=== PATIENT | male | born 1950 | race African-American/Black ===

== ENCOUNTER 2018-10-24 16:44 | Inpatient (IN) | payer MEDICARE, MEDICAID ==
[~2018-10-24] VITALS: Ht 182.9 cm; Wt 112.5 kg
[2018-10-24] VITALS (17 sets, daily range): BP systolic 73–180; BP diastolic 42–120
[2018-10-24] MEDS ORDERED: SUCCINYLCHOLINE CHLORIDE 200MG/10ML IV ONE (16:51)
[2018-10-24] MEDS ORDERED: SODIUM CHLORIDE 0.9% 10ML VIAL ONE (16:51)
[2018-10-24] MEDS ORDERED: SODIUM BICARBONATE 8.4% 10MEQ/10ML SYR IV ONE (16:51)
[2018-10-24] MEDS ORDERED: CALCIUM CHLORIDE 1GM/10ML SYR IV ONE ×4 (16:51→19:15)
[2018-10-24] MEDS ORDERED: ATROPINE SULFATE 1MG/10ML SYR ONE (16:51)
[2018-10-24] MEDS ORDERED: DEXTROSE 50% WATER 50ML SYRINGE IV ONE ×2 (16:51→19:00)
[2018-10-24] MEDS ORDERED: VECURONIUM BROMIDE 10 MG/VIAL IV ONE ×2 (16:51→19:15)
[2018-10-24] MEDS ORDERED: ETOMIDATE 2MG/ML 10ML VIAL IV ONE ×2 (16:51→17:00)
[2018-10-24] MEDS ORDERED: SODIUM CHLORIDE 0.9% 1,000 ML IV ONE (16:57)
[2018-10-24] MEDS ORDERED: SODIUM BICARBONATE 8.4% 1 MEQ/ML 50ML SYR IV ONE ×2 (17:00→19:00)
[2018-10-24] MEDS ORDERED: CALCIUM CHLORIDE 1,000 MG in DEXT 5% WATER 100 ML IV ONE (17:00)
[2018-10-24] MEDS ORDERED: MIDAZOLAM HCL 2 MG/2 ML VIAL ONE (17:10)
[2018-10-24 18:41] LABS: INR 1.3; PROTHROMBIN TIME 13.4 sec (9.6-11.0)
[2018-10-24 18:42] LABS: CHLORIDE 107 mEq/L (98-107); HEMATOCRIT. 31.5 % (42.0-52.0); HEMOGLOBIN. 9.8 g/dL (14.0-18.0); MEAN CORPUSCULAR HEMOGLOBIN 31.2 pg (28.0-32.0); MEAN CORPUSCULAR VOLUME 100.1 fL (80.0-94.0); MEAN PLATELET VOLUME 7.7 fl (7.4-10.4); PLATELET 165 x1000/uL (130-400); RED BLOOD CELL COUNT 3.14 mill/uL (4.7-6.1); RED CELL DISTRIBUTION WIDTH 20.5 % (11.6-14.6)
[2018-10-24 18:47] LABS: ETHANOL BLOOD < 10 mg/dL
[2018-10-24] MEDS ORDERED: INSULIN REGULAR (HUMULIN R) 300UNITS/3ML IV ONE (19:00)
[2018-10-24 19:05] LABS: BG BASE EXCESS -17.3 mmol/L (-2.0-2.0); BG CARBOXYHEMOGLOBIN 1.1 % (0.5-1.5); BG FRACTION INSPIRED OXYGEN 100; BG METHEMOGLOBIN 0.3 % (0.0-1.5); BG OXYHEMOGLOBIN 97.6 % (94.0-97.0); BG PCO2 41.8 mmHg (35.0-45.0); BG PH 7.075 (7.350-7.450); BG PO2 347.7 mmHg (75.0-100.0); BG SAMPLE SITE LEFT BRACHIAL; BG TIDAL VOLUME(mL) 550 mL; BG TOTAL HEMOGLOBIN 10.7 g/dL (12.0-18.0); BG VENT MODE VENT - A/C; BG VENT RATE 16 set
[2018-10-24] MEDS ORDERED: ATROPINE SULFATE 1MG/10ML SYR IV ONE ×2 (19:15)
[2018-10-24 20:40] LABS: NUCLEATED RED BLOOD CELLS 1 /100 WBC; PLATELET ESTIMATE NORMAL
[2018-10-24] MEDS ORDERED: LORAZEPAM 2MG/ML CPJ IV PRN (21:45)
[2018-10-24] MEDS ORDERED: PIPERACILLIN/TAZ 3.375G PREMIX 50 ML IV SCH (22:30)
[2018-10-25] VITALS (99 sets, daily range): BP systolic 68–146; BP diastolic 31–83
[2018-10-25 00:04] LABS: CREATINE KINASE 932 IU/L (39-308)
[2018-10-25 00:06] LABS: CREATINE KINASE MB FRACTION 24.4 ng/mL (0.5-3.6)
[2018-10-25] MEDS ORDERED: NOREPINEPHRINE 4 MG in DEXT 5% WATER 246 ML IV PRN (01:15)
[2018-10-25] MEDS: PROPOFOL 10MG/ML 100ML 100 ML IV PRN ×5 (01:39→20:28)
[2018-10-25] MEDS: PIPERACILLIN/TAZ 2.25G PREMIX 50 ML IV SCH ×3 (03:16→16:12)
[2018-10-25] MEDS ORDERED: VANCOMYCIN 2,000 MG in DEXT 5% WATER 400 ML IV NR (05:00)
[2018-10-25 06:06] LABS: HEMATOCRIT. 25.2 % (42.0-52.0); HEMOGLOBIN. 8.1 g/dL (14.0-18.0); MEAN CORPUSCULAR HEMOGLOBIN 31.4 pg (28.0-32.0); MEAN CORPUSCULAR VOLUME 97.2 fL (80.0-94.0); MEAN PLATELET VOLUME 7.8 fl (7.4-10.4); PLATELET 131 x1000/uL (130-400); RED CELL DISTRIBUTION WIDTH 20.1 % (11.6-14.6)
[2018-10-25 06:17] LABS: CREATINE KINASE MB FRACTION 18.6 ng/mL (0.5-3.6)
[2018-10-25] MEDS: IPRATROPIUM/ALBUTEROL 0.5-3(2.5)MG/3ML NEB HHN SCH ×4 (08:15→20:32)
[2018-10-25 08:37] LABS: BG CARBOXYHEMOGLOBIN 2.3 % (0.5-1.5); BG FRACTION INSPIRED OXYGEN 40; BG HCO3 ACT 25.4 mmol/L (22.0-26.0); BG METHEMOGLOBIN 0.3 % (0.0-1.5); BG OXYGEN SATURATION 89.7 % (92.0-98.5); BG OXYHEMOGLOBIN 87.4 % (94.0-97.0); BG PCO2 52.2 mmHg (35.0-45.0); BG PH 7.305 (7.350-7.450); BG PO2 69.4 mmHg (75.0-100.0); BG SAMPLE SITE RIGHT BRACHIAL; BG TIDAL VOLUME(mL) 500 mL; BG TOTAL HEMOGLOBIN 7.4 g/dL (12.0-18.0); BG VENT MODE VENT - A/C; BG VENT RATE 18 set
[2018-10-25] MEDS: HEPARIN 5000 UNITS/ML VIAL SUBCUT SCH ×2 (08:59→21:00)
[2018-10-25] MEDS: FAMOTIDINE 20MG/2ML VIAL IV SCH (09:00)
[2018-10-25] MEDS: NOREPINEPHRINE 16 MG in DEXT 5% WATER 234 ML IV PRN ×2 (11:57→21:25)
[2018-10-25 12:13] LABS: T4 FREE 1.07 ng/dL (0.76-1.46)
[2018-10-25] MEDS ORDERED: SODIUM CHLORIDE 0.9% 500 ML IV SCH (12:30)
[2018-10-25] MEDS: DEXT 5%/0.45% NACL 1000ML 1,000 ML IV SCH (12:35)
[2018-10-25] MEDS ORDERED: PHENYLEPHRINE 40 MG in DEXT 5% WATER 246 ML IV PRN (13:15)
[2018-10-25 17:59] LABS: NUCLEATED RED BLOOD CELLS 3 /100 WBC; PLATELET ESTIMATE NORMAL
[2018-10-25 20:27] LABS: ETHANOL BLOOD < 10 mg/dL
[2018-10-25 20:29] LABS: TOTAL IRON BINDING CAPACITY 223 ug/dL (250-450)
[2018-10-25 20:53] LABS: FERRITIN 833 ng/mL (22-322)
[2018-10-25 20:56] LABS: VITAMIN B12 SERUM >2000 pg/mL pg/mL (211-911)
[2018-10-26] VITALS (95 sets, daily range): BP systolic 89–147; BP diastolic 33–72
[2018-10-26] MEDS: IPRATROPIUM/ALBUTEROL 0.5-3(2.5)MG/3ML NEB HHN SCH ×5 (00:07→21:00)
[2018-10-26] MEDS: PIPERACILLIN/TAZ 2.25G PREMIX 50 ML IV SCH ×4 (00:31→17:17)
[2018-10-26] MEDS: PROPOFOL 10MG/ML 100ML 100 ML IV PRN ×2 (04:31→09:01)
[2018-10-26 06:29] LABS: PHOSPHORUS 11.1 mg/dL (2.5-4.9)
[2018-10-26] MEDS: NOREPINEPHRINE 16 MG in DEXT 5% WATER 234 ML IV PRN ×2 (06:43→16:45)
[2018-10-26] MEDS: HEPARIN 5000 UNITS/ML VIAL SUBCUT SCH ×2 (09:00→21:00)
[2018-10-26] MEDS: FAMOTIDINE 20MG/2ML VIAL IV SCH (09:00)
[2018-10-26] MEDS: DEXT 5%/0.45% NACL 1000ML 1,000 ML IV SCH (09:15)
[2018-10-26] MEDS ORDERED: HEPARIN SODIUM 1,000 UNIT/1ML VIAL IV NR (11:00)
[2018-10-26] MEDS ORDERED: LORAZEPAM 2MG/ML CPJ IV PRN (11:00)
[2018-10-26 11:55] LABS: HEMATOCRIT. 30.2 % (42.0-52.0); HEMOGLOBIN. 9.4 g/dL (14.0-18.0); MEAN CORPUSCULAR HEMOGLOBIN 30.9 pg (28.0-32.0); MEAN CORPUSCULAR VOLUME 99.4 fL (80.0-94.0); MEAN PLATELET VOLUME 7.7 fl (7.4-10.4); PLATELET 165 x1000/uL (130-400); RED BLOOD CELL COUNT 3.03 mill/uL (4.7-6.1)
[2018-10-26 12:17] LABS: NUCLEATED RED BLOOD CELLS 1 /100 WBC; PLATELET ESTIMATE NORMAL
[2018-10-26] MEDS: FENTANYL CITRATE/PF 500 MCG in SODIUM CHLORIDE 0.9% 40 ML IV PRN (16:55)
[2018-10-26] MEDS: SEVELAMER CARBONATE 800 MG TABLET PO SCH (17:17)
[2018-10-26 20:49] LABS: T4 FREE 0.83 ng/dL (0.76-1.46)
[2018-10-26] MEDS: QUETIAPINE FUMARATE 25MG TABLET PO SCH (21:12)
[2018-10-26] MEDS: SODIUM CHLORIDE 3% FOR INH 15ML VIAL NEB INH SCH (21:20)
[2018-10-27] VITALS (143 sets, daily range): BP systolic 83–156; BP diastolic 30–92
[2018-10-27] MEDS: IPRATROPIUM/ALBUTEROL 0.5-3(2.5)MG/3ML NEB HHN SCH ×6 (00:08→21:33)
[2018-10-27] MEDS: ACETYLCYSTEINE 100MG/ML 10% VIAL 4ML INH SCH ×3 (00:08→16:41)
[2018-10-27] MEDS: PIPERACILLIN/TAZ 2.25G PREMIX 50 ML IV SCH ×3 (00:43→16:49)
[2018-10-27] MEDS: SODIUM CHLORIDE 3% FOR INH 15ML VIAL NEB INH SCH ×2 (04:17→16:40)
[2018-10-27] MEDS: DEXT 5%/0.45% NACL 1000ML 1,000 ML IV SCH (05:43)
[2018-10-27 05:53] LABS: HEMATOCRIT. 25.3 % (42.0-52.0); HEMOGLOBIN. 8.2 g/dL (14.0-18.0); MEAN CORPUSCULAR HEMOGLOBIN 31.6 pg (28.0-32.0); MEAN CORPUSCULAR VOLUME 96.8 fL (80.0-94.0); PLATELET 138 x1000/uL (130-400); RED BLOOD CELL COUNT 2.61 mill/uL (4.7-6.1); RED CELL DISTRIBUTION WIDTH 19.6 % (11.6-14.6)
[2018-10-27] MEDS: SEVELAMER CARBONATE 800 MG TABLET PO SCH ×3 (06:11→16:50)
[2018-10-27 08:47] LABS: BG BASE EXCESS -4.4 mmol/L (-2.0-2.0); BG CARBOXYHEMOGLOBIN 1.6 % (0.5-1.5); BG DEOXYHEMOGLOBIN 5.9 % (0.0-5.0); BG FRACTION INSPIRED OXYGEN 50; BG HCO3 ACT 22.1 mmol/L (22.0-26.0); BG METHEMOGLOBIN 0.3 % (0.0-1.5); BG OXYHEMOGLOBIN 92.2 % (94.0-97.0); BG PCO2 47.4 mmHg (35.0-45.0); BG PH 7.286 (7.350-7.450); BG PO2 85.1 mmHg (75.0-100.0); BG PRESSURE SUPPORT 14; BG SAMPLE SITE RIGHT BRACHIAL; BG TIDAL VOLUME(mL) 550 mL; BG TOTAL HEMOGLOBIN 8.2 g/dL (12.0-18.0); BG VENT MODE VENT - SIMV; BG VENT RATE 12 set
[2018-10-27] MEDS: HEPARIN 5000 UNITS/ML VIAL SUBCUT SCH (08:58)
[2018-10-27] MEDS: FAMOTIDINE 20MG/2ML VIAL IV SCH (08:58)
[2018-10-27] MEDS: NOREPINEPHRINE 16 MG in DEXT 5% WATER 234 ML IV PRN ×2 (08:59→19:34)
[2018-10-27 10:02] LABS: HEMATOCRIT. 24.6 % (42.0-52.0); HEMOGLOBIN. 7.8 g/dL (14.0-18.0); MEAN CORPUSCULAR HEMOGLOBIN 30.8 pg (28.0-32.0); MEAN CORPUSCULAR VOLUME 96.7 fL (80.0-94.0); MEAN PLATELET VOLUME 7.9 fl (7.4-10.4); PLATELET 129 x1000/uL (130-400); RED BLOOD CELL COUNT 2.55 mill/uL (4.7-6.1); RED CELL DISTRIBUTION WIDTH 19.5 % (11.6-14.6)
[2018-10-27] MEDS: FENTANYL CITRATE/PF 500 MCG in SODIUM CHLORIDE 0.9% 40 ML IV PRN (10:12)
[2018-10-27] MEDS ORDERED: VANCOMYCIN 1250MG in DEXTROSE 5% WATER 250ML IV SCH (11:00)
[2018-10-27 12:51] LABS: PLATELET ESTIMATE NORMAL
[2018-10-27 13:06] LABS: PLATELET ESTIMATE NORMAL
[2018-10-27] MEDS ORDERED: CALCIUM GLUCONATE 2,000 MG in DEXT 5% WATER 80 ML IV NR (16:00)
[2018-10-27] MEDS: QUETIAPINE FUMARATE 25MG TABLET PO SCH (20:41)
[2018-10-28] VITALS (92 sets, daily range): BP systolic 85–162; BP diastolic 33–75
[2018-10-28] MEDS: ACETYLCYSTEINE 100MG/ML 10% VIAL 4ML INH SCH ×3 (00:40→15:29)
[2018-10-28] MEDS: SODIUM CHLORIDE 3% FOR INH 15ML VIAL NEB INH SCH ×3 (00:41→19:55)
[2018-10-28] MEDS: IPRATROPIUM/ALBUTEROL 0.5-3(2.5)MG/3ML NEB HHN SCH ×6 (00:41→19:54)
[2018-10-28] MEDS: PIPERACILLIN/TAZ 2.25G PREMIX 50 ML IV SCH ×3 (01:43→18:41)
[2018-10-28 06:01] LABS: HEMATOCRIT. 24.8 % (42.0-52.0); HEMOGLOBIN. 8.2 g/dL (14.0-18.0); MEAN CORPUSCULAR HEMOGLOBIN 31.4 pg (28.0-32.0); MEAN CORPUSCULAR VOLUME 95.6 fL (80.0-94.0); MEAN PLATELET VOLUME 7.8 fl (7.4-10.4); PLATELET 126 x1000/uL (130-400); RED BLOOD CELL COUNT 2.59 mill/uL (4.7-6.1); RED CELL DISTRIBUTION WIDTH 18.8 % (11.6-14.6)
[2018-10-28] MEDS: NOREPINEPHRINE 16 MG in DEXT 5% WATER 234 ML IV PRN (06:58)
[2018-10-28] MEDS: SEVELAMER CARBONATE 800 MG TABLET PO SCH ×3 (07:00→16:07)
[2018-10-28] MEDS: FAMOTIDINE 20MG/2ML VIAL IV SCH (09:31)
[2018-10-28] MEDS: DEXT 5%/0.45% NACL 1000ML 1,000 ML IV SCH ×2 (09:32→21:00)
[2018-10-28 10:43] LABS: PLATELET ESTIMATE SLIGHTLY DECREASED
[2018-10-28] MEDS: FENTANYL CITRATE/PF 500 MCG in SODIUM CHLORIDE 0.9% 40 ML IV PRN (12:51)
[2018-10-28] MEDS ORDERED: ROCURONIUM BROMIDE 10MG/ML VIAL 5ML IV ONE ×2 (16:53→17:45)
[2018-10-28] MEDS ORDERED: FENTANYL CITRATE/PF 50MCG/ML 2ML VIAL ONE (16:53)
[2018-10-28] MEDS ORDERED: PROPOFOL 200MG/20ML VIAL IV ONE (16:55)
[2018-10-28] MEDS ORDERED: CEFAZOLIN SODIUM 1000MG/VIAL ONE (17:12)
[2018-10-28] MEDS: QUETIAPINE FUMARATE 25MG TABLET PO SCH (21:00)
[2018-10-28] MEDS: EPOETIN ALFA 10000UNITS/ML VIAL SUBCUT SCH (21:00)
[2018-10-29] VITALS (99 sets, daily range): BP systolic 98–177; BP diastolic 31–83
[2018-10-29] MEDS: IPRATROPIUM/ALBUTEROL 0.5-3(2.5)MG/3ML NEB HHN SCH ×6 (00:10→21:40)
[2018-10-29] MEDS: ACETYLCYSTEINE 100MG/ML 10% VIAL 4ML INH SCH ×4 (00:10→21:40)
[2018-10-29] MEDS: PIPERACILLIN/TAZ 2.25G PREMIX 50 ML IV SCH ×3 (01:34→19:18)
[2018-10-29] MEDS: SODIUM CHLORIDE 3% FOR INH 15ML VIAL NEB INH SCH ×3 (01:54→20:44)
[2018-10-29 06:12] LABS: HEMATOCRIT. 26.5 % (42.0-52.0); HEMOGLOBIN. 8.8 g/dL (14.0-18.0); MEAN CORPUSCULAR HEMOGLOBIN 31.1 pg (28.0-32.0); MEAN CORPUSCULAR VOLUME 93.9 fL (80.0-94.0); MEAN PLATELET VOLUME 7.8 fl (7.4-10.4); PLATELET 87 x1000/uL (130-400); RED BLOOD CELL COUNT 2.82 mill/uL (4.7-6.1); RED CELL DISTRIBUTION WIDTH 18.7 % (11.6-14.6)
[2018-10-29] MEDS: SEVELAMER CARBONATE 800 MG TABLET PO SCH ×3 (06:25→19:18)
[2018-10-29] MEDS: NOREPINEPHRINE 16 MG in DEXT 5% WATER 234 ML IV PRN (06:25)
[2018-10-29] MEDS: FENTANYL CITRATE/PF 500 MCG in SODIUM CHLORIDE 0.9% 40 ML IV PRN (06:26)
[2018-10-29] MEDS: FAMOTIDINE 20MG/2ML VIAL IV SCH (09:38)
[2018-10-29] MEDS: DOPAMINE 400MG/250ML PREMIX 250 ML IV PRN (10:12)
[2018-10-29 10:15] LABS: PLATELET ESTIMATE DECREASED
[2018-10-29] MEDS ORDERED: FENTANYL CITRATE/PF 50MCG/ML 2ML VIAL ONE (11:42)
[2018-10-29] MEDS ORDERED: MIDAZOLAM HCL 5 MG/5 ML VIAL ONE (11:42)
[2018-10-29] MEDS ORDERED: VANCOMYCIN 500 MG PREMIX 100 ML IV SCH (13:00)
[2018-10-29] MEDS ORDERED: HEPARIN SODIUM 1,000 UNIT/1ML VIAL IV NR (16:30)
[2018-10-29] MEDS: DEXT 5%/0.45% NACL 1000ML 1,000 ML IV SCH (19:19)
[2018-10-29] MEDS: QUETIAPINE FUMARATE 25MG TABLET PO SCH (20:54)
[2018-10-30] VITALS (98 sets, daily range): BP systolic 76–140; BP diastolic 29–102
[2018-10-30] MEDS: PIPERACILLIN/TAZ 2.25G PREMIX 50 ML IV SCH ×3 (00:25→17:18)
[2018-10-30] MEDS: IPRATROPIUM/ALBUTEROL 0.5-3(2.5)MG/3ML NEB HHN SCH ×6 (01:19→20:47)
[2018-10-30] MEDS: SODIUM CHLORIDE 3% FOR INH 15ML VIAL NEB INH SCH (01:20)
[2018-10-30] MEDS: MORPHINE SULFATE 2 MG/ML CPJ (NOT FOR IM USE) IV PRN (02:50)
[2018-10-30 04:16] LABS: BARBITURATE SCREEN Negative ug/mL (Cutoff:0.1); BENZODIAZEPINE SCREEN Negative ng/mL (Cutoff:20); OPIATES SCREEN Negative ng/mL (Cutoff:5); PHENCYCLIDINE SCREEN Negative ng/mL (Cutoff:8)
[2018-10-30] MEDS: ACETYLCYSTEINE 100MG/ML 10% VIAL 4ML INH SCH (04:28)
[2018-10-30 05:26] LABS: BASOPHILS % 0.5 % (0.0-2.0); EOSINOPHILS % 3.9 % (0.0-5.0); HEMATOCRIT. 26.3 % (42.0-52.0); HEMOGLOBIN. 8.7 g/dL (14.0-18.0); LYMPHOCYTES % 7.1 % (20.0-50.0); MEAN CORPUSCULAR HEMOGLOBIN 31.6 pg (28.0-32.0); MEAN CORPUSCULAR VOLUME 95.4 fL (80.0-94.0); NEUTROPHILS % 78.5 % (40.0-76.0); RED BLOOD CELL COUNT 2.75 mill/uL (4.7-6.1); RED CELL DISTRIBUTION WIDTH 18.4 % (11.6-14.6)
[2018-10-30] MEDS ORDERED: LIDOCAINE HCL 1% 20ML VIAL (Pyxis) INJ ONE (06:37)
[2018-10-30] MEDS: SEVELAMER CARBONATE 800 MG TABLET PO SCH ×3 (06:43→17:17)
[2018-10-30] MEDS: LANSOPRAZOLE 30MG DR CAPSULE GT SCH (06:43)
[2018-10-30 08:03] LABS: BG BASE EXCESS -4.1 mmol/L (-2.0-2.0); BG CARBOXYHEMOGLOBIN 1.4 % (0.5-1.5); BG DEOXYHEMOGLOBIN 9.2 % (0.0-5.0); BG FRACTION INSPIRED OXYGEN 45; BG HCO3 ACT 21.7 mmol/L (22.0-26.0); BG METHEMOGLOBIN 0.3 % (0.0-1.5); BG OXYGEN SATURATION 90.6 % (92.0-98.5); BG OXYHEMOGLOBIN 89.1 % (94.0-97.0); BG PCO2 42.6 mmHg (35.0-45.0); BG PH 7.324 (7.350-7.450); BG PO2 66.6 mmHg (75.0-100.0); BG PRESSURE SUPPORT 16; BG SAMPLE SITE LEFT BRACHIAL; BG TIDAL VOLUME(mL) 550 mL; BG TOTAL HEMOGLOBIN 9.1 g/dL (12.0-18.0); BG VENT MODE VENT - SIMV; BG VENT RATE 12 set
[2018-10-30] MEDS: DOPAMINE 400MG/250ML PREMIX 250 ML IV PRN ×2 (09:22→22:17)
[2018-10-30] MEDS: MIDODRINE HCL 5MG TABLET PO SCH ×3 (09:31→17:17)
[2018-10-30 10:09] LABS: PLATELET 76 x1000/uL (130-400)
[2018-10-30] MEDS ORDERED: HEPARIN SODIUM 1,000 UNIT/1ML VIAL IV SCH (13:00)
[2018-10-30] MEDS ORDERED: VANCOMYCIN 500 MG PREMIX 100 ML IV SCH (14:00)
[2018-10-30] MEDS: QUETIAPINE FUMARATE 25MG TABLET PO SCH (21:12)
[2018-10-30] MEDS: EPOETIN ALFA 10000UNITS/ML VIAL SUBCUT SCH (21:12)
[2018-10-31] VITALS (103 sets, daily range): BP systolic 74–128; BP diastolic 23–64
[2018-10-31] MEDS: IPRATROPIUM/ALBUTEROL 0.5-3(2.5)MG/3ML NEB HHN SCH ×6 (00:32→20:53)
[2018-10-31] MEDS: ACETYLCYSTEINE 100MG/ML 10% VIAL 4ML INH SCH ×2 (00:33→15:21)
[2018-10-31] MEDS: PIPERACILLIN/TAZ 2.25G PREMIX 50 ML IV SCH ×3 (01:09→16:20)
[2018-10-31] MEDS: SEVELAMER CARBONATE 800 MG TABLET PO SCH ×3 (06:08→16:20)
[2018-10-31] MEDS: LANSOPRAZOLE 30MG DR CAPSULE GT SCH (06:08)
[2018-10-31 07:25] LABS: HEMATOCRIT. 28.5 % (42.0-52.0); HEMOGLOBIN. 9.3 g/dL (14.0-18.0); MEAN CORPUSCULAR HEMOGLOBIN 31.4 pg (28.0-32.0); MEAN PLATELET VOLUME 8.5 fl (7.4-10.4); PLATELET 99 x1000/uL (130-400); RED BLOOD CELL COUNT 2.96 mill/uL (4.7-6.1); RED CELL DISTRIBUTION WIDTH 17.1 % (11.6-14.6)
[2018-10-31] MEDS: DOPAMINE 400MG/250ML PREMIX 250 ML IV PRN (08:33)
[2018-10-31] MEDS: MIDODRINE HCL 5MG TABLET PO SCH ×3 (09:01→16:20)
[2018-10-31] MEDS ORDERED: SODIUM BICARBONATE 4% (2.4MEQ) 5ML VIAL IV ONE (09:38)
[2018-10-31] MEDS: NOREPINEPHRINE 16 MG in DEXT 5% WATER 484 ML IV PRN (13:36)
[2018-10-31 14:19] LABS: PLATELET ESTIMATE DECREASED
[2018-10-31] MEDS: QUETIAPINE FUMARATE 25MG TABLET PO SCH (20:44)
[2018-11-01] VITALS (95 sets, daily range): BP systolic 84–125; BP diastolic 35–66
[2018-11-01] MEDS: ACETYLCYSTEINE 100MG/ML 10% VIAL 4ML INH SCH (00:34)
[2018-11-01] MEDS: IPRATROPIUM/ALBUTEROL 0.5-3(2.5)MG/3ML NEB HHN SCH ×6 (00:35→20:16)
[2018-11-01] MEDS: LANSOPRAZOLE 30MG DR CAPSULE GT SCH (06:01)
[2018-11-01] MEDS: SEVELAMER CARBONATE 800 MG TABLET PO SCH ×3 (06:01→18:29)
[2018-11-01 06:33] LABS: HEMATOCRIT. 26.3 % (42.0-52.0); HEMOGLOBIN. 8.9 g/dL (14.0-18.0); MEAN CORPUSCULAR VOLUME 94.4 fL (80.0-94.0); PLATELET 143 x1000/uL (130-400); RED BLOOD CELL COUNT 2.78 mill/uL (4.7-6.1); RED CELL DISTRIBUTION WIDTH 17.1 % (11.6-14.6)
[2018-11-01 08:26] LABS: NUCLEATED RED BLOOD CELLS 2 /100 WBC; PLATELET ESTIMATE NORMAL
[2018-11-01] MEDS: MIDODRINE HCL 5MG TABLET PO SCH ×3 (09:44→18:30)
[2018-11-01 10:14] LABS: BG BASE EXCESS -2.7 mmol/L (-2.0-2.0); BG CARBOXYHEMOGLOBIN 0.8 % (0.5-1.5); BG DEOXYHEMOGLOBIN 19.8 % (0.0-5.0); BG FRACTION INSPIRED OXYGEN 50; BG HCO3 ACT 22.8 mmol/L (22.0-26.0); BG OXYHEMOGLOBIN 79.4 % (94.0-97.0); BG PCO2 42.4 mmHg (35.0-45.0); BG PH 7.349 (7.350-7.450); BG PO2 48.1 mmHg (75.0-100.0); BG PRESSURE SUPPORT 16; BG SAMPLE SITE RIGHT RADIAL; BG TIDAL VOLUME(mL) 550 mL; BG TOTAL HEMOGLOBIN 9.7 g/dL (12.0-18.0); BG VENT MODE VENT - SIMV; BG VENT RATE 12 set
[2018-11-01] MEDS ORDERED: ALBUMIN HUMAN 12.5G/250ML (5%) IV SCH (13:30)
[2018-11-01] MEDS: SODIUM CHLORIDE 3% FOR INH 15ML VIAL NEB INH SCH (20:16)
[2018-11-01] MEDS: QUETIAPINE FUMARATE 25MG TABLET PO SCH (21:05)
[2018-11-02] VITALS (94 sets, daily range): BP systolic 88–129; BP diastolic 24–79
[2018-11-02] MEDS: IPRATROPIUM/ALBUTEROL 0.5-3(2.5)MG/3ML NEB HHN SCH ×6 (00:09→20:15)
[2018-11-02] MEDS: SODIUM CHLORIDE 3% FOR INH 15ML VIAL NEB INH SCH (01:37)
[2018-11-02] MEDS: MORPHINE SULFATE 2 MG/ML CPJ (NOT FOR IM USE) IV PRN ×2 (04:20→14:09)
[2018-11-02 05:41] LABS: BASOPHILS % 1.1 % (0.0-2.0); EOSINOPHILS % 2.3 % (0.0-5.0); HEMATOCRIT. 26.7 % (42.0-52.0); HEMOGLOBIN. 8.7 g/dL (14.0-18.0); LYMPHOCYTES % 8.4 % (20.0-50.0); MEAN CORPUSCULAR HEMOGLOBIN 31.5 pg (28.0-32.0); MEAN CORPUSCULAR VOLUME 96.7 fL (80.0-94.0); MEAN PLATELET VOLUME 8.9 fl (7.4-10.4); MONOCYTES % 7.2 % (2.0-8.0); PLATELET 119 x1000/uL (130-400); RED BLOOD CELL COUNT 2.76 mill/uL (4.7-6.1); RED CELL DISTRIBUTION WIDTH 17.4 % (11.6-14.6)
[2018-11-02] MEDS: SEVELAMER CARBONATE 800 MG TABLET PO SCH ×3 (06:14→18:03)
[2018-11-02] MEDS: LANSOPRAZOLE 30MG DR CAPSULE GT SCH (06:14)
[2018-11-02] MEDS ORDERED: CEFOTAXIME SODIUM 500MG/VIAL IV SCH (09:00)
[2018-11-02] MEDS: MIDODRINE HCL 5MG TABLET PO SCH ×3 (09:03→18:03)
[2018-11-02 09:21] LABS: BG BASE EXCESS -0.7 mmol/L (-2.0-2.0); BG CARBOXYHEMOGLOBIN 0.6 % (0.5-1.5); BG DEOXYHEMOGLOBIN 2.7 % (0.0-5.0); BG HCO3 ACT 24.5 mmol/L (22.0-26.0); BG OXYGEN SATURATION 97.3 % (92.0-98.5); BG OXYHEMOGLOBIN 96.7 % (94.0-97.0); BG PCO2 42.6 mmHg (35.0-45.0); BG PH 7.377 (7.350-7.450); BG PO2 102.3 mmHg (75.0-100.0); BG SAMPLE SITE RIGHT BRACHIAL; BG TIDAL VOLUME(mL) 550 mL; BG TOTAL HEMOGLOBIN 9.5 g/dL (12.0-18.0); BG VENT MODE VENT - SIMV; BG VENT RATE 12 set
[2018-11-02] MEDS ORDERED: LIDOCAINE HCL 1% 20ML VIAL (Pyxis) INJ ONE (11:23)
[2018-11-02] MEDS ORDERED: SODIUM BICARBONATE 4% (2.4MEQ) 5ML VIAL IV ONE (11:24)
[2018-11-02] MEDS: ACETAMINOPHEN 650MG/20.3ML UDC PO PRN (14:03)
[2018-11-02] MEDS: CEFTRIAXONE 2 G in DEXTROSE 5% WATER 50 ML IV SCH (14:03)
[2018-11-02] MEDS: QUETIAPINE FUMARATE 25MG TABLET PO SCH (21:21)
[2018-11-02] MEDS: EPOETIN ALFA 10000UNITS/ML VIAL SUBCUT SCH (21:21)
[2018-11-03] VITALS (60 sets, daily range): BP systolic 85–141; BP diastolic 30–78
[2018-11-03] MEDS: IPRATROPIUM/ALBUTEROL 0.5-3(2.5)MG/3ML NEB HHN SCH ×6 (00:17→21:16)
[2018-11-03 06:16] LABS: BASOPHILS % 0.4 % (0.0-2.0); EOSINOPHILS % 0.9 % (0.0-5.0); HEMOGLOBIN. 8.3 g/dL (14.0-18.0); LYMPHOCYTES % 7.2 % (20.0-50.0); MEAN CORPUSCULAR HEMOGLOBIN 30.9 pg (28.0-32.0); MEAN CORPUSCULAR VOLUME 96.4 fL (80.0-94.0); MEAN PLATELET VOLUME 7.8 fl (7.4-10.4); MONOCYTES % 6.7 % (2.0-8.0); NEUTROPHILS % 84.8 % (40.0-76.0); PLATELET 238 x1000/uL (130-400); RED BLOOD CELL COUNT 2.69 mill/uL (4.7-6.1); RED CELL DISTRIBUTION WIDTH 16.8 % (11.6-14.6)
[2018-11-03] MEDS: SEVELAMER CARBONATE 800 MG TABLET PO SCH ×3 (06:42→17:57)
[2018-11-03] MEDS: LANSOPRAZOLE 30MG DR CAPSULE GT SCH (06:42)
[2018-11-03] MEDS: SODIUM CHLORIDE 3% FOR INH 15ML VIAL NEB INH SCH ×2 (08:45→15:02)
[2018-11-03] MEDS: MIDODRINE HCL 5MG TABLET PO SCH ×3 (09:00→17:57)
[2018-11-03] MEDS ORDERED: HEPARIN SODIUM 1,000 UNIT/1ML VIAL IV SCH (09:15)
[2018-11-03] MEDS: CEFTRIAXONE 2 G in DEXTROSE 5% WATER 50 ML IV SCH (12:00)
[2018-11-03] MEDS: QUETIAPINE FUMARATE 25MG TABLET PO SCH (20:45)
[2018-11-03] MEDS: ACETAMINOPHEN 650MG/20.3ML UDC PO PRN (20:45)
[2018-11-03] MEDS: DOPAMINE 400MG/250ML PREMIX 250 ML IV PRN (22:16)
[2018-11-04] VITALS (62 sets, daily range): BP systolic 100–144; BP diastolic 42–70
[2018-11-04] MEDS: IPRATROPIUM/ALBUTEROL 0.5-3(2.5)MG/3ML NEB HHN SCH ×6 (00:34→21:45)
[2018-11-04 05:48] LABS: BASOPHILS % 0.4 % (0.0-2.0); HEMATOCRIT. 28.5 % (42.0-52.0); HEMOGLOBIN. 9.1 g/dL (14.0-18.0); LYMPHOCYTES % 8.1 % (20.0-50.0); MEAN CORPUSCULAR HEMOGLOBIN 30.9 pg (28.0-32.0); MEAN CORPUSCULAR VOLUME 96.6 fL (80.0-94.0); MEAN PLATELET VOLUME 7.4 fl (7.4-10.4); MONOCYTES % 6.2 % (2.0-8.0); NEUTROPHILS % 84.3 % (40.0-76.0); PLATELET 313 x1000/uL (130-400); RED BLOOD CELL COUNT 2.95 mill/uL (4.7-6.1); RED CELL DISTRIBUTION WIDTH 16.5 % (11.6-14.6)
[2018-11-04] MEDS: LANSOPRAZOLE 30MG DR CAPSULE GT SCH (06:05)
[2018-11-04] MEDS: SEVELAMER CARBONATE 800 MG TABLET PO SCH ×3 (06:05→16:17)
[2018-11-04 07:54] LABS: BG BASE EXCESS -1.8 mmol/L (-2.0-2.0); BG CARBOXYHEMOGLOBIN 0.8 % (0.5-1.5); BG DEOXYHEMOGLOBIN 2.6 % (0.0-5.0); BG FRACTION INSPIRED OXYGEN 405; BG HCO3 ACT 24.2 mmol/L (22.0-26.0); BG OXYGEN SATURATION 97.4 % (92.0-98.5); BG OXYHEMOGLOBIN 96.6 % (94.0-97.0); BG PCO2 46.4 mmHg (35.0-45.0); BG PH 7.336 (7.350-7.450); BG PO2 106.7 mmHg (75.0-100.0); BG PRESSURE SUPPORT 16; BG SAMPLE SITE RIGHT BRACHIAL; BG TIDAL VOLUME(mL) 550 mL; BG VENT MODE VENT - SIMV; BG VENT RATE 8 set
[2018-11-04] MEDS: MIDODRINE HCL 5MG TABLET PO SCH ×3 (09:00→16:18)
[2018-11-04] MEDS: CEFTRIAXONE 2 G in DEXTROSE 5% WATER 50 ML IV SCH (12:00)
[2018-11-04] MEDS: QUETIAPINE FUMARATE 25MG TABLET PO SCH (21:57)
[2018-11-05] VITALS (79 sets, daily range): BP systolic 107–137; BP diastolic 38–75
[2018-11-05] MEDS: DOPAMINE 400MG/250ML PREMIX 250 ML IV PRN ×2 (01:47→21:05)
[2018-11-05 04:13] LABS: BASOPHILS % 0.8 % (0.0-2.0); EOSINOPHILS % 1.3 % (0.0-5.0); HEMATOCRIT. 26.8 % (42.0-52.0); HEMOGLOBIN. 8.8 g/dL (14.0-18.0); LYMPHOCYTES % 7.7 % (20.0-50.0); MEAN CORPUSCULAR HEMOGLOBIN 31.5 pg (28.0-32.0); MEAN CORPUSCULAR VOLUME 95.8 fL (80.0-94.0); MONOCYTES % 6.8 % (2.0-8.0); NEUTROPHILS % 83.4 % (40.0-76.0); PLATELET 325 x1000/uL (130-400); RED CELL DISTRIBUTION WIDTH 15.9 % (11.6-14.6)
[2018-11-05 05:01] LABS: CHLORIDE 95 mEq/L (98-107)
[2018-11-05 06:19] LABS: INR 1.1; PROTHROMBIN TIME 11.5 sec (9.6-11.0)
[2018-11-05] MEDS: LANSOPRAZOLE 30MG DR CAPSULE GT SCH (06:30)
[2018-11-05] MEDS: IPRATROPIUM/ALBUTEROL 0.5-3(2.5)MG/3ML NEB HHN SCH ×3 (06:36→21:12)
[2018-11-05] MEDS: SEVELAMER CARBONATE 800 MG TABLET PO SCH ×3 (06:55→17:50)
[2018-11-05] MEDS ORDERED: LIDOCAINE HCL 1% 20ML VIAL (Pyxis) INJ ONE ×2 (08:20→10:43)
[2018-11-05] MEDS ORDERED: CEFAZOLIN 1000MG PREMIX 100 ML IV ONE (08:20)
[2018-11-05] MEDS ORDERED: GENTAMICIN/NS IRRIGATION 500 ML IR ONE (08:20)
[2018-11-05 08:42] LABS: BG BASE EXCESS 3.4 mmol/L (-2.0-2.0); BG CARBOXYHEMOGLOBIN 0.7 % (0.5-1.5); BG DEOXYHEMOGLOBIN 1.4 % (0.0-5.0); BG FRACTION INSPIRED OXYGEN 40; BG HCO3 ACT 25.6 mmol/L (22.0-26.0); BG METHEMOGLOBIN 0.4 % (0.0-1.5); BG OXYGEN SATURATION 98.6 % (92.0-98.5); BG OXYHEMOGLOBIN 97.5 % (94.0-97.0); BG PCO2 28.4 mmHg (35.0-45.0); BG PH 7.573 (7.350-7.450); BG PO2 110.2 mmHg (75.0-100.0); BG PRESSURE SUPPORT 16; BG SAMPLE SITE RIGHT RADIAL; BG TIDAL VOLUME(mL) 550 mL; BG TOTAL HEMOGLOBIN 6.7 g/dL (12.0-18.0); BG VENT MODE VENT - SIMV; BG VENT RATE 8 set
[2018-11-05] MEDS: MIDODRINE HCL 5MG TABLET PO SCH ×3 (09:00→17:00)
[2018-11-05] MEDS ORDERED: MIDAZOLAM HCL 2 MG/2 ML VIAL ONE ×2 (09:01→09:42)
[2018-11-05] MEDS ORDERED: FENTANYL CITRATE/PF 50MCG/ML 2ML VIAL ONE (09:02)
[2018-11-05] MEDS ORDERED: DIPHENHYDRAMINE 50MG/ML VIAL ONE (09:08)
[2018-11-05] MEDS ORDERED: IODIXANOL 320MG/ML 100 ML BOTTLE IV ONE (09:41)
[2018-11-05] MEDS ORDERED: DOPAMINE 400MG/250ML PREMIX 250 ML IV ONE (10:44)
[2018-11-05] MEDS: CEFTRIAXONE 2 G in DEXTROSE 5% WATER 50 ML IV SCH (12:41)
[2018-11-05] MEDS: QUETIAPINE FUMARATE 25MG TABLET PO SCH (20:59)
[2018-11-06] VITALS (93 sets, daily range): BP systolic 97–139; BP diastolic 30–119
[2018-11-06] MEDS: IPRATROPIUM/ALBUTEROL 0.5-3(2.5)MG/3ML NEB HHN SCH ×4 (02:44→20:32)
[2018-11-06] MEDS: ACETAMINOPHEN 650MG/20.3ML UDC PO PRN (03:50)
[2018-11-06] MEDS: SEVELAMER CARBONATE 800 MG TABLET PO SCH ×3 (06:41→17:24)
[2018-11-06] MEDS: LANSOPRAZOLE 30MG DR CAPSULE GT SCH (06:41)
[2018-11-06 08:16] LABS: BASOPHILS % 0.7 % (0.0-2.0); EOSINOPHILS % 1.6 % (0.0-5.0); HEMATOCRIT. 27.4 % (42.0-52.0); HEMOGLOBIN. 8.8 g/dL (14.0-18.0); LYMPHOCYTES % 7.3 % (20.0-50.0); MEAN CORPUSCULAR HEMOGLOBIN 30.3 pg (28.0-32.0); MEAN CORPUSCULAR VOLUME 94.9 fL (80.0-94.0); MEAN PLATELET VOLUME 7.1 fl (7.4-10.4); NEUTROPHILS % 82.4 % (40.0-76.0); PLATELET 373 x1000/uL (130-400); RED BLOOD CELL COUNT 2.89 mill/uL (4.7-6.1); RED CELL DISTRIBUTION WIDTH 16.4 % (11.6-14.6)
[2018-11-06 08:33] LABS: BG BASE EXCESS -2.5 mmol/L (-2.0-2.0); BG CARBOXYHEMOGLOBIN 0.3 % (0.5-1.5); BG DEOXYHEMOGLOBIN 2.2 % (0.0-5.0); BG FRACTION INSPIRED OXYGEN 40; BG HCO3 ACT 22.1 mmol/L (22.0-26.0); BG METHEMOGLOBIN 0.1 % (0.0-1.5); BG OXYGEN SATURATION 97.8 % (92.0-98.5); BG OXYHEMOGLOBIN 97.4 % (94.0-97.0); BG PCO2 37.2 mmHg (35.0-45.0); BG PH 7.391 (7.350-7.450); BG PO2 116.7 mmHg (75.0-100.0); BG PRESSURE SUPPORT 12; BG SAMPLE SITE RIGHT BRACHIAL; BG TIDAL VOLUME(mL) 550 mL; BG TOTAL HEMOGLOBIN 9.6 g/dL (12.0-18.0); BG VENT MODE VENT - SIMV; BG VENT RATE 10 set
[2018-11-06] MEDS: MIDODRINE HCL 5MG TABLET PO SCH ×3 (09:49→17:24)
[2018-11-06] MEDS: DOPAMINE 400MG/250ML PREMIX 250 ML IV PRN (12:03)
[2018-11-06] MEDS: CEFTRIAXONE 2 G in DEXTROSE 5% WATER 50 ML IV SCH (12:07)
[2018-11-06 13:30] LABS: BG BASE EXCESS -0.2 mmol/L (-2.0-2.0); BG CARBOXYHEMOGLOBIN 0.2 % (0.5-1.5); BG DEOXYHEMOGLOBIN 4.8 % (0.0-5.0); BG FRACTION INSPIRED OXYGEN 40; BG METHEMOGLOBIN 0.1 % (0.0-1.5); BG OXYGEN SATURATION 95.2 % (92.0-98.5); BG OXYHEMOGLOBIN 94.9 % (94.0-97.0); BG PCO2 43.4 mmHg (35.0-45.0); BG PH 7.379 (7.350-7.450); BG PO2 82.4 mmHg (75.0-100.0); BG PRESSURE SUPPORT 12; BG SAMPLE SITE RIGHT RADIAL; BG TIDAL VOLUME(mL) 550 mL; BG TOTAL HEMOGLOBIN 9.4 g/dL (12.0-18.0); BG VENT MODE VENT - SIMV; BG VENT RATE 6 set
[2018-11-06] MEDS: QUETIAPINE FUMARATE 25MG TABLET PO SCH (21:55)
[2018-11-07] VITALS (94 sets, daily range): BP systolic 108–165; BP diastolic 38–81
[2018-11-07] MEDS: DOPAMINE 400MG/250ML PREMIX 250 ML IV PRN ×2 (00:44→10:32)
[2018-11-07] MEDS: IPRATROPIUM/ALBUTEROL 0.5-3(2.5)MG/3ML NEB HHN SCH ×4 (02:27→20:23)
[2018-11-07] MEDS: SEVELAMER CARBONATE 800 MG TABLET PO SCH ×3 (06:46→18:40)
[2018-11-07] MEDS: LANSOPRAZOLE 30MG DR CAPSULE GT SCH (06:46)
[2018-11-07] MEDS: MIDODRINE HCL 5MG TABLET PO SCH ×3 (10:23→18:40)
[2018-11-07] MEDS: ACETAMINOPHEN 650MG/20.3ML UDC PO PRN (10:40)
[2018-11-07 10:51] LABS: BASOPHILS % 1.2 % (0.0-2.0); EOSINOPHILS % 1.7 % (0.0-5.0); HEMATOCRIT. 27.9 % (42.0-52.0); HEMOGLOBIN. 9.1 g/dL (14.0-18.0); LYMPHOCYTES % 9.7 % (20.0-50.0); MEAN CORPUSCULAR HEMOGLOBIN 30.8 pg (28.0-32.0); MEAN CORPUSCULAR VOLUME 94.3 fL (80.0-94.0); MEAN PLATELET VOLUME 6.7 fl (7.4-10.4); NEUTROPHILS % 79.4 % (40.0-76.0); PLATELET 392 x1000/uL (130-400); RED BLOOD CELL COUNT 2.96 mill/uL (4.7-6.1)
[2018-11-07 10:58] LABS: PHOSPHORUS 5.4 mg/dL (2.5-4.9)
[2018-11-07 11:27] LABS: BG BASE EXCESS -4.1 mmol/L (-2.0-2.0); BG CARBOXYHEMOGLOBIN 0.3 % (0.5-1.5); BG DEOXYHEMOGLOBIN 4.9 % (0.0-5.0); BG FRACTION INSPIRED OXYGEN 40; BG HCO3 ACT 20.6 mmol/L (22.0-26.0); BG METHEMOGLOBIN 0.1 % (0.0-1.5); BG OXYGEN SATURATION 95.1 % (92.0-98.5); BG OXYHEMOGLOBIN 94.7 % (94.0-97.0); BG PCO2 36.1 mmHg (35.0-45.0); BG PH 7.375 (7.350-7.450); BG PO2 83.7 mmHg (75.0-100.0); BG PRESSURE SUPPORT 12; BG SAMPLE SITE RIGHT RADIAL; BG TIDAL VOLUME(mL) 550 mL; BG TOTAL HEMOGLOBIN 9.5 g/dL (12.0-18.0); BG VENT MODE VENT - SIMV; BG VENT RATE 6 set
[2018-11-07] MEDS: QUETIAPINE FUMARATE 25MG TABLET PO SCH (20:28)
[2018-11-08] VITALS (84 sets, daily range): BP systolic 64–149; BP diastolic 34–88
[2018-11-08] MEDS: IPRATROPIUM/ALBUTEROL 0.5-3(2.5)MG/3ML NEB HHN SCH ×4 (01:20→20:07)
[2018-11-08 05:53] LABS: BASOPHILS % 1.3 % (0.0-2.0); HEMATOCRIT. 27.7 % (42.0-52.0); HEMOGLOBIN. 8.9 g/dL (14.0-18.0); LYMPHOCYTES % 11.3 % (20.0-50.0); MEAN CORPUSCULAR HEMOGLOBIN 30.5 pg (28.0-32.0); MEAN PLATELET VOLUME 6.7 fl (7.4-10.4); MONOCYTES % 9.7 % (2.0-8.0); NEUTROPHILS % 75.7 % (40.0-76.0); PLATELET 437 x1000/uL (130-400); RED BLOOD CELL COUNT 2.92 mill/uL (4.7-6.1); RED CELL DISTRIBUTION WIDTH 15.9 % (11.6-14.6)
[2018-11-08] MEDS: SEVELAMER CARBONATE 800 MG TABLET PO SCH ×3 (06:52→17:25)
[2018-11-08] MEDS: LANSOPRAZOLE 30MG DR CAPSULE GT SCH (06:53)
[2018-11-08] MEDS ORDERED: MIDAZOLAM HCL 2 MG/2 ML VIAL ONE ×2 (07:59→08:58)
[2018-11-08] MEDS ORDERED: LIDOCAINE HCL 1% 20ML VIAL (Pyxis) INJ ONE (08:00)
[2018-11-08] MEDS ORDERED: FENTANYL CITRATE/PF 50MCG/ML 2ML VIAL ONE (08:00)
[2018-11-08] MEDS ORDERED: GENTAMICIN/NS IRRIGATION 500 ML IR ONE (08:01)
[2018-11-08] MEDS ORDERED: CEFAZOLIN 1000MG PREMIX 50 ML IV ONE (08:06)
[2018-11-08] MEDS ORDERED: DIPHENHYDRAMINE 50MG/ML VIAL ONE (08:39)
[2018-11-08] MEDS: MIDODRINE HCL 5MG TABLET PO SCH ×3 (10:49→17:25)
[2018-11-08] MEDS ORDERED: LORAZEPAM 2MG/ML CPJ IV PRN (11:15)
[2018-11-08] MEDS ORDERED: HALOPERIDOL LACTATE 5MG/ML VIAL IM PRN (11:15)
[2018-11-08] MEDS: NOREPINEPHRINE 16 MG in DEXT 5% WATER 484 ML IV PRN (12:30)
[2018-11-08] MEDS ORDERED: HEPARIN SODIUM 1,000 UNIT/1ML VIAL IV NR (13:15)
[2018-11-08] MEDS: QUETIAPINE FUMARATE 25MG TABLET PO SCH (21:59)
[2018-11-09] VITALS (81 sets, daily range): BP systolic 80–135; BP diastolic 33–98
[2018-11-09] MEDS: MORPHINE SULFATE 2 MG/ML CPJ (NOT FOR IM USE) IV PRN ×2 (00:40→11:34)
[2018-11-09] MEDS: IPRATROPIUM/ALBUTEROL 0.5-3(2.5)MG/3ML NEB HHN SCH ×4 (02:03→21:19)
[2018-11-09 05:15] LABS: BASOPHILS % 1.1 % (0.0-2.0); EOSINOPHILS % 2.3 % (0.0-5.0); HEMATOCRIT. 24.8 % (42.0-52.0); HEMOGLOBIN. 8.2 g/dL (14.0-18.0); LYMPHOCYTES % 14.7 % (20.0-50.0); MEAN CORPUSCULAR HEMOGLOBIN 31.1 pg (28.0-32.0); MEAN PLATELET VOLUME 6.9 fl (7.4-10.4); NEUTROPHILS % 70.9 % (40.0-76.0); PLATELET 379 x1000/uL (130-400); RED BLOOD CELL COUNT 2.64 mill/uL (4.7-6.1); RED CELL DISTRIBUTION WIDTH 16.1 % (11.6-14.6)
[2018-11-09] MEDS: ACETAMINOPHEN 650MG/20.3ML UDC PO PRN (06:09)
[2018-11-09] MEDS: LANSOPRAZOLE 30MG DR CAPSULE GT SCH (06:09)
[2018-11-09] MEDS: SEVELAMER CARBONATE 800 MG TABLET PO SCH ×3 (06:09→18:00)
[2018-11-09] MEDS ORDERED: CEFAZOLIN 1000MG PREMIX 50 ML IV SCH (08:00)
[2018-11-09] MEDS: MIDODRINE HCL 5MG TABLET PO SCH ×3 (09:02→18:00)
[2018-11-09] MEDS: QUETIAPINE FUMARATE 25MG TABLET PO SCH (21:19)
[2018-11-10] VITALS (10 sets, daily range): BP systolic 96–131; BP diastolic 44–85
[2018-11-10] MEDS: IPRATROPIUM/ALBUTEROL 0.5-3(2.5)MG/3ML NEB HHN SCH ×4 (01:15→20:02)
[2018-11-10 07:35] LABS: HEMOGLOBIN. 7.9 g/dL (14.0-18.0); LYMPHOCYTES % 12.8 % (20.0-50.0); MEAN CORPUSCULAR HEMOGLOBIN 30.7 pg (28.0-32.0); MEAN CORPUSCULAR VOLUME 93.5 fL (80.0-94.0); MEAN PLATELET VOLUME 6.6 fl (7.4-10.4); MONOCYTES % 9.8 % (2.0-8.0); NEUTROPHILS % 73.4 % (40.0-76.0); PLATELET 428 x1000/uL (130-400); RED BLOOD CELL COUNT 2.57 mill/uL (4.7-6.1); RED CELL DISTRIBUTION WIDTH 15.7 % (11.6-14.6)
[2018-11-10] MEDS: SEVELAMER CARBONATE 800 MG TABLET PO SCH ×3 (09:23→17:31)
[2018-11-10] MEDS: MIDODRINE HCL 5MG TABLET PO SCH ×3 (09:23→17:32)
[2018-11-10] MEDS: LANSOPRAZOLE 30MG DR CAPSULE GT SCH (09:23)
[2018-11-10] MEDS ORDERED: REGADENOSON 0.4 MG/5 ML IV ONE (12:13)
[2018-11-10] MEDS ORDERED: HEPARIN SODIUM 1,000 UNIT/1ML VIAL IV NR (13:26)
[2018-11-10] MEDS ORDERED: IPRATROPIUM/ALBUTEROL 0.5-3(2.5)MG/3ML NEB HHN PRN (15:45)
[2018-11-10] MEDS: QUETIAPINE FUMARATE 25MG TABLET PO SCH (22:12)
[2018-11-11] VITALS (12 sets, daily range): BP systolic 98–130; BP diastolic 45–60
[2018-11-11] MEDS: IPRATROPIUM/ALBUTEROL 0.5-3(2.5)MG/3ML NEB HHN SCH ×3 (02:48→19:56)
[2018-11-11 06:49] LABS: BASOPHILS % 1.2 % (0.0-2.0); EOSINOPHILS % 3.2 % (0.0-5.0); HEMATOCRIT. 25.3 % (42.0-52.0); LYMPHOCYTES % 11.6 % (20.0-50.0); MEAN CORPUSCULAR HEMOGLOBIN 29.8 pg (28.0-32.0); MEAN PLATELET VOLUME 6.3 fl (7.4-10.4); MONOCYTES % 9.2 % (2.0-8.0); NEUTROPHILS % 74.8 % (40.0-76.0); PLATELET 438 x1000/uL (130-400); RED BLOOD CELL COUNT 2.69 mill/uL (4.7-6.1)
[2018-11-11] MEDS: LANSOPRAZOLE 30MG DR CAPSULE GT SCH (08:25)
[2018-11-11] MEDS: SEVELAMER CARBONATE 800 MG TABLET PO SCH ×3 (08:25→17:31)
[2018-11-11] MEDS: MIDODRINE HCL 5MG TABLET PO SCH ×3 (09:49→17:31)
[2018-11-11] MEDS: HEPARIN 5000 UNITS/ML VIAL SUBCUT SCH (21:27)
[2018-11-11] MEDS: QUETIAPINE FUMARATE 25MG TABLET PO SCH (21:27)
[2018-11-12] VITALS (12 sets, daily range): BP systolic 104–151; BP diastolic 49–82
[2018-11-12] MEDS: IPRATROPIUM/ALBUTEROL 0.5-3(2.5)MG/3ML NEB HHN SCH ×4 (01:59→20:28)
[2018-11-12] MEDS: LANSOPRAZOLE 30MG DR CAPSULE GT SCH (08:29)
[2018-11-12] MEDS: MIDODRINE HCL 5MG TABLET PO SCH ×3 (08:29→17:00)
[2018-11-12] MEDS: HEPARIN 5000 UNITS/ML VIAL SUBCUT SCH ×2 (08:30→20:36)
[2018-11-12] MEDS: SEVELAMER CARBONATE 800 MG TABLET PO SCH ×3 (08:30→18:00)
[2018-11-12] MEDS ORDERED: CEFEPIME 2,000 MG in DEXT 5% WATER 100 ML IV SCH (09:30)
[2018-11-12 10:09] LABS: BG BASE EXCESS 0.2 mmol/L (-2.0-2.0); BG CARBOXYHEMOGLOBIN 0.2 % (0.5-1.5); BG DEOXYHEMOGLOBIN 6.2 % (0.0-5.0); BG FRACTION INSPIRED OXYGEN 30; BG HCO3 ACT 25.3 mmol/L (22.0-26.0); BG METHEMOGLOBIN 0.5 % (0.0-1.5); BG OXYGEN SATURATION 93.8 % (92.0-98.5); BG OXYHEMOGLOBIN 93.1 % (94.0-97.0); BG PH 7.387 (7.350-7.450); BG PO2 76.6 mmHg (75.0-100.0); BG PRESSURE SUPPORT 8; BG SAMPLE SITE RIGHT RADIAL; BG TOTAL HEMOGLOBIN 9.3 g/dL (12.0-18.0); BG VENT MODE VENT - CPAP
[2018-11-12] MEDS ORDERED: CEFEPIME 1,000 MG in DEXTROSE 5% WATER 50 ML IV SCH (10:30)
[2018-11-12] MEDS ORDERED: LIDOCAINE HCL/PF 1% 2ML VIAL ONE (10:53)
[2018-11-12] MEDS: ACETYLCYSTEINE 100MG/ML 10% VIAL 4ML INH SCH ×2 (14:50→20:28)
[2018-11-12] MEDS ORDERED: LEVOFLOXACIN 750MG PREMIX 150 ML IV NR ×2 (17:00→21:00)
[2018-11-12 17:14] LABS: BASOPHILS % 1.3 % (0.0-2.0); EOSINOPHILS % 2.7 % (0.0-5.0); HEMATOCRIT. 26.9 % (42.0-52.0); HEMOGLOBIN. 8.5 g/dL (14.0-18.0); LYMPHOCYTES % 11.4 % (20.0-50.0); MEAN CORPUSCULAR VOLUME 94.5 fL (80.0-94.0); MEAN PLATELET VOLUME 6.3 fl (7.4-10.4); MONOCYTES % 8.6 % (2.0-8.0); PLATELET 527 x1000/uL (130-400); RED BLOOD CELL COUNT 2.85 mill/uL (4.7-6.1); RED CELL DISTRIBUTION WIDTH 16.1 % (11.6-14.6)
[2018-11-12] MEDS ORDERED: LORAZEPAM 2MG/ML CPJ IV PRN (17:30)
[2018-11-12] MEDS ORDERED: MORPHINE SULFATE 2 MG/ML CPJ (NOT FOR IM USE) IV PRN (18:00)
[2018-11-12] MEDS: QUETIAPINE FUMARATE 25MG TABLET PO SCH (20:36)
[2018-11-13] VITALS (12 sets, daily range): BP systolic 108–157; BP diastolic 56–75
[2018-11-13] MEDS: IPRATROPIUM/ALBUTEROL 0.5-3(2.5)MG/3ML NEB HHN SCH ×4 (01:40→20:24)
[2018-11-13] MEDS: ACETYLCYSTEINE 100MG/ML 10% VIAL 4ML INH SCH ×2 (08:50→20:24)
[2018-11-13] MEDS: HEPARIN 5000 UNITS/ML VIAL SUBCUT SCH ×3 (08:58→20:45)
[2018-11-13] MEDS: SEVELAMER CARBONATE 800 MG TABLET PO SCH ×3 (08:58→17:26)
[2018-11-13] MEDS: MIDODRINE HCL 5MG TABLET PO SCH ×3 (08:59→17:26)
[2018-11-13] MEDS: LANSOPRAZOLE 30MG DR CAPSULE GT SCH (09:12)
[2018-11-13 12:31] LABS: EOSINOPHILS % 2.2 % (0.0-5.0); HEMATOCRIT. 25.8 % (42.0-52.0); HEMOGLOBIN. 8.3 g/dL (14.0-18.0); LYMPHOCYTES % 10.3 % (20.0-50.0); MEAN CORPUSCULAR HEMOGLOBIN 30.6 pg (28.0-32.0); MEAN CORPUSCULAR VOLUME 94.9 fL (80.0-94.0); MEAN PLATELET VOLUME 6.1 fl (7.4-10.4); MONOCYTES % 10.4 % (2.0-8.0); NEUTROPHILS % 76.1 % (40.0-76.0); PLATELET 486 x1000/uL (130-400); RED BLOOD CELL COUNT 2.72 mill/uL (4.7-6.1); RED CELL DISTRIBUTION WIDTH 15.7 % (11.6-14.6)
[2018-11-13] MEDS: QUETIAPINE FUMARATE 25MG TABLET PO SCH (20:45)
[2018-11-14] VITALS (12 sets, daily range): BP systolic 105–149; BP diastolic 48–75
[2018-11-14] MEDS: IPRATROPIUM/ALBUTEROL 0.5-3(2.5)MG/3ML NEB HHN SCH ×4 (01:39→20:09)
[2018-11-14 06:25] LABS: HEMATOCRIT. 25.2 % (42.0-52.0); HEMOGLOBIN. 8.1 g/dL (14.0-18.0); MEAN CORPUSCULAR HEMOGLOBIN 30.6 pg (28.0-32.0); MEAN CORPUSCULAR VOLUME 94.9 fL (80.0-94.0); MEAN PLATELET VOLUME 5.9 fl (7.4-10.4); PLATELET 473 x1000/uL (130-400); RED BLOOD CELL COUNT 2.66 mill/uL (4.7-6.1); RED CELL DISTRIBUTION WIDTH 15.7 % (11.6-14.6)
[2018-11-14] MEDS: LANSOPRAZOLE 30MG DR CAPSULE GT SCH ×2 (07:30→14:29)
[2018-11-14] MEDS: SEVELAMER CARBONATE 800 MG TABLET PO SCH ×4 (08:00→18:35)
[2018-11-14] MEDS: MIDODRINE HCL 5MG TABLET PO SCH ×4 (09:00→18:35)
[2018-11-14] MEDS: HEPARIN 5000 UNITS/ML VIAL SUBCUT SCH ×2 (09:00→21:45)
[2018-11-14] MEDS: ACETYLCYSTEINE 100MG/ML 10% VIAL 4ML INH SCH (09:18)
[2018-11-14 11:36] LABS: PLATELET ESTIMATE INCREASED
[2018-11-14] MEDS ORDERED: FENTANYL CITRATE/PF 50MCG/ML 2ML VIAL ONE (13:03)
[2018-11-14] MEDS ORDERED: MIDAZOLAM HCL 5 MG/5 ML VIAL ONE (13:04)
[2018-11-14] MEDS ORDERED: SIMETHICONE 40 MG/0.6 ML 30ML ONE (13:23)
[2018-11-14] MEDS ORDERED: BACTERIOSTATIC SODIUM CHLORIDE 0.9% 30ML VIAL IJ ONE (13:23)
[2018-11-14] MEDS ORDERED: FENTANYL CITRATE/PF 50MCG/ML 2ML VIAL IV NR (13:30)
[2018-11-14] MEDS ORDERED: MIDAZOLAM HCL 5 MG/5 ML VIAL IV PRN (13:32)
[2018-11-14] MEDS: LEVOFLOXACIN 500MG PREMIX 100 ML IV SCH (16:12)
[2018-11-14] MEDS: QUETIAPINE FUMARATE 25MG TABLET PO SCH (21:45)
[2018-11-15] VITALS (12 sets, daily range): BP systolic 124–153; BP diastolic 54–81
[2018-11-15] MEDS: ACETYLCYSTEINE 100MG/ML 10% VIAL 4ML INH SCH ×3 (00:26→23:52)
[2018-11-15] MEDS: IPRATROPIUM/ALBUTEROL 0.5-3(2.5)MG/3ML NEB HHN SCH ×5 (00:27→23:44)
[2018-11-15] MEDS: LANSOPRAZOLE 30MG DR CAPSULE GT SCH (08:14)
[2018-11-15] MEDS: SEVELAMER CARBONATE 800 MG TABLET PO SCH ×3 (08:19→18:30)
[2018-11-15] MEDS: HEPARIN 5000 UNITS/ML VIAL SUBCUT SCH ×2 (09:54→21:00)
[2018-11-15] MEDS: MIDODRINE HCL 5MG TABLET PO SCH ×3 (09:54→18:30)
[2018-11-15] MEDS ORDERED: EPOETIN ALFA 4000UNITS/ML VIAL SUBCUT SCH (21:00)
[2018-11-15] MEDS: QUETIAPINE FUMARATE 25MG TABLET PO SCH (22:59)
[2018-11-16] VITALS (12 sets, daily range): BP systolic 111–150; BP diastolic 51–68
[2018-11-16 07:16] LABS: HEMATOCRIT. 27.2 % (42.0-52.0); HEMOGLOBIN. 8.6 g/dL (14.0-18.0); MEAN CORPUSCULAR HEMOGLOBIN 30.3 pg (28.0-32.0); MEAN CORPUSCULAR VOLUME 95.7 fL (80.0-94.0); MEAN PLATELET VOLUME 6.1 fl (7.4-10.4); PLATELET 456 x1000/uL (130-400); RED BLOOD CELL COUNT 2.84 mill/uL (4.7-6.1); RED CELL DISTRIBUTION WIDTH 15.8 % (11.6-14.6)
[2018-11-16] MEDS: ACETYLCYSTEINE 100MG/ML 10% VIAL 4ML INH SCH (08:52)
[2018-11-16] MEDS: IPRATROPIUM/ALBUTEROL 0.5-3(2.5)MG/3ML NEB HHN SCH ×3 (08:52→20:37)
[2018-11-16] MEDS: HEPARIN 5000 UNITS/ML VIAL SUBCUT SCH ×2 (09:03→22:29)
[2018-11-16] MEDS: MIDODRINE HCL 5MG TABLET PO SCH ×3 (09:03→17:43)
[2018-11-16] MEDS: SEVELAMER CARBONATE 800 MG TABLET PO SCH ×3 (09:04→17:42)
[2018-11-16] MEDS: LANSOPRAZOLE 30MG DR CAPSULE GT SCH (09:04)
[2018-11-16 13:15] LABS: PLATELET ESTIMATE INCREASED
[2018-11-16] MEDS: LEVOFLOXACIN 500MG PREMIX 100 ML IV SCH (17:43)
[2018-11-16] MEDS ORDERED: QUET25TA PO (18:46)
[2018-11-16] MEDS ORDERED: LANS30CA55 GT (18:46)
[2018-11-16] MEDS ORDERED: LEVO500T2 GT (18:46)
[2018-11-16] MEDS ORDERED: SEVE800T8 PO (18:46)
[2018-11-16] MEDS ORDERED: MIDO5TAB PO (18:46)
[2018-11-16] MEDS: QUETIAPINE FUMARATE 25MG TABLET PO SCH (22:07)
[2018-11-17] VITALS (8 sets, daily range): BP systolic 127–157; BP diastolic 56–103
[2018-11-17] MEDS: IPRATROPIUM/ALBUTEROL 0.5-3(2.5)MG/3ML NEB HHN SCH ×2 (02:01→07:52)
[2018-11-17] MEDS: LANSOPRAZOLE 30MG DR CAPSULE GT SCH ×2 (07:02→08:07)
[2018-11-17] MEDS: SEVELAMER CARBONATE 800 MG TABLET PO SCH ×2 (08:07→13:00)
[2018-11-17] MEDS: HEPARIN 5000 UNITS/ML VIAL SUBCUT SCH (09:26)
[2018-11-17] MEDS: MIDODRINE HCL 5MG TABLET PO SCH (09:27)
[2018-11-17] MEDS: ACETAMINOPHEN 650MG/20.3ML UDC PO PRN (10:19)
[2018-11-17] MEDS ORDERED: HYDROCODONE/ACETAMINOPHEN 5/325MG TABLET PO PRN (10:30)
[2018-11-17] MEDS ORDERED: LIDOCAINE HCL/EPINEPHRINE 1%-EPI 1:100,000 20 ML VIAL INFIL ONE (12:15)
[2018-11-17] MEDS ORDERED: MIDODRINE HCL 5MG TABLET PO SCH (13:00)
[2018-11-18] MEDS ORDERED: LEVOFLOXACIN 500MG TABLET GT SCH (17:00)
== END 2018-11-17 15:00 | DRG 3 ==
LOC: EDBD 16:44 → ER 16:44 → MICUSO 18:58 → ENRESERV 18:59 → EDBEDREQ 19:03 → MICUSO 20:49 → 5EST 11-09 22:53
PROVIDERS: ADMIT Internal Medicine; ATTEND Internal Medicine
PROC: 5A1955Z Respiratory Ventilation, Greater than 96 Consecutive Hours (ICD-10-PCS; principal; 2018-10-24)
PROC: 0BH17EZ Insertion of Endotracheal Airway into Trachea, Via Natural or Artificial Opening (ICD-10-PCS; 2018-10-24)
PROC: 06HY33Z Insertion of Infusion Device into Lower Vein, Percutaneous Approach (ICD-10-PCS; 2018-10-24)
PROC: 05HY33Z Insertion of Infusion Device into Upper Vein, Percutaneous Approach (ICD-10-PCS; 2018-10-24)
PROC: 5A1D70Z Performance of Urinary Filtration, Intermittent, Less than 6 Hours Per Day (ICD-10-PCS; 2018-10-24)
PROC: 4A00X4Z Measurement of Central Nervous Electrical Activity, External Approach (ICD-10-PCS; 2018-10-26)
PROC: 5A1D70Z Performance of Urinary Filtration, Intermittent, Less than 6 Hours Per Day (ICD-10-PCS; 2018-10-26)
PROC: 0W993ZZ Drainage of Right Pleural Cavity, Percutaneous Approach (ICD-10-PCS; 2018-10-27)
PROC: 30233N1 Transfusion of Nonautologous Red Blood Cells into Peripheral Vein, Percutaneous Approach (ICD-10-PCS; 2018-10-28)
PROC: 5A1D70Z Performance of Urinary Filtration, Intermittent, Less than 6 Hours Per Day (ICD-10-PCS; 2018-10-28)
PROC: 5A1D70Z Performance of Urinary Filtration, Intermittent, Less than 6 Hours Per Day (ICD-10-PCS; 2018-10-29)
PROC: 02HV33Z Insertion of Infusion Device into Superior Vena Cava, Percutaneous Approach (ICD-10-PCS; 2018-10-30)
PROC: B548ZZA Ultrasonography of Superior Vena Cava, Guidance (ICD-10-PCS; 2018-10-30)
PROC: 5A1D70Z Performance of Urinary Filtration, Intermittent, Less than 6 Hours Per Day (ICD-10-PCS; 2018-10-30)
PROC: 0B110F4 Bypass Trachea to Cutaneous with Tracheostomy Device, Open Approach (ICD-10-PCS; 2018-10-31)
PROC: 0GBJ0ZZ Excision of Thyroid Gland Isthmus, Open Approach (ICD-10-PCS; 2018-10-31)
PROC: 0W9G3ZZ Drainage of Peritoneal Cavity, Percutaneous Approach (ICD-10-PCS; 2018-10-31)
PROC: 5A1D70Z Performance of Urinary Filtration, Intermittent, Less than 6 Hours Per Day (ICD-10-PCS; 2018-11-01)
PROC: 0W993ZZ Drainage of Right Pleural Cavity, Percutaneous Approach (ICD-10-PCS; 2018-11-02)
PROC: 5A1D70Z Performance of Urinary Filtration, Intermittent, Less than 6 Hours Per Day (ICD-10-PCS; 2018-11-03)
PROC: 05HY33Z Insertion of Infusion Device into Upper Vein, Percutaneous Approach (ICD-10-PCS; 2018-11-05)
PROC: B5171ZZ Fluoroscopy of Left Subclavian Vein using Low Osmolar Contrast (ICD-10-PCS; 2018-11-05)
PROC: 5A1D70Z Performance of Urinary Filtration, Intermittent, Less than 6 Hours Per Day (ICD-10-PCS; 2018-11-05)
PROC: 0JH606Z Insertion of Pacemaker, Dual Chamber into Chest Subcutaneous Tissue and Fascia, Open Approach (ICD-10-PCS; 2018-11-08)
PROC: 02H63JZ Insertion of Pacemaker Lead into Right Atrium, Percutaneous Approach (ICD-10-PCS; 2018-11-08)
PROC: 02HK3JZ Insertion of Pacemaker Lead into Right Ventricle, Percutaneous Approach (ICD-10-PCS; 2018-11-08)
PROC: 5A1D70Z Performance of Urinary Filtration, Intermittent, Less than 6 Hours Per Day (ICD-10-PCS; 2018-11-10)
PROC: 5A1D70Z Performance of Urinary Filtration, Intermittent, Less than 6 Hours Per Day (ICD-10-PCS; 2018-11-12)
PROC: 0DH63UZ Insertion of Feeding Device into Stomach, Percutaneous Approach (ICD-10-PCS; 2018-11-14)
PROC: 5A1D70Z Performance of Urinary Filtration, Intermittent, Less than 6 Hours Per Day (ICD-10-PCS; 2018-11-15)
PROC: 5A1D70Z Performance of Urinary Filtration, Intermittent, Less than 6 Hours Per Day (ICD-10-PCS; 2018-11-17)
DX: A41.9 Sepsis, unspecified organism (principal); J69.0 Pneumonitis due to inhalation of food and vomit; I46.9 Cardiac arrest, cause unspecified; N18.6 End stage renal disease; R65.21 Severe sepsis with septic shock; G92 Toxic encephalopathy; I50.43 Acute on chronic combined systolic (congestive) and diastolic (congestive) heart failure; I63.9 Cerebral infarction, unspecified; J96.21 Acute and chronic respiratory failure with hypoxia; G93.1 Anoxic brain damage, not elsewhere classified; J91.8 Pleural effusion in other conditions classified elsewhere; E46 Unspecified protein-calorie malnutrition; E87.2 Acidosis; I13.2 Hypertensive heart and chronic kidney disease with heart failure and with stage 5 chronic kidney disease, or end stage renal disease; J98.19 Other pulmonary collapse; K80.00 Calculus of gallbladder with acute cholecystitis without obstruction; L97.909 Non-pressure chronic ulcer of unspecified part of unspecified lower leg with unspecified severity; R18.8 Other ascites; Z99.11 Dependence on respirator [ventilator] status; E87.5 Hyperkalemia; E11.22 Type 2 diabetes mellitus with diabetic chronic kidney disease; D63.1 Anemia in chronic kidney disease; D50.9 Iron deficiency anemia, unspecified; D53.9 Nutritional anemia, unspecified; E66.01 Morbid (severe) obesity due to excess calories; E78.1 Pure hyperglyceridemia; E78.5 Hyperlipidemia, unspecified; E83.39 Other disorders of phosphorus metabolism; E83.51 Hypocalcemia; H11.30 Conjunctival hemorrhage, unspecified eye; I27.20 Pulmonary hypertension, unspecified; I44.1 Atrioventricular block, second degree; R16.0 Hepatomegaly, not elsewhere classified; K29.70 Gastritis, unspecified, without bleeding; L89.309 Pressure ulcer of unspecified buttock, unspecified stage; L89.899 Pressure ulcer of other site, unspecified stage; K44.9 Diaphragmatic hernia without obstruction or gangrene; R13.10 Dysphagia, unspecified; Z79.4 Long term (current) use of insulin; Z91.15 Patient's noncompliance with renal dialysis; Z91.19 Patient's noncompliance with other medical treatment and regimen; Z93.1 Gastrostomy status; Z99.2 Dependence on renal dialysis; Z78.1 Physical restraint status; Z68.33 Body mass index [BMI] 33.0-33.9, adult
CPT/HCPCS: 31500; 32555; 33208; 36415; 36569; 36600; 49083; 51702; 70551; 71045; 71250; 75820; 76604; 76700; 76705; 76937; 80048; 80061; 80202; 80307; 80320; 82040; 82140; 82330; 82375; 82550; 82553; 82607; 82728; 82746; 82805; 82962; 83036; 83540; 83550; 83605; 83615; 83735; 83880; 84100; 84134; 84145; 84439; 84443; 84481; 84484; 86850; 86900; 86920; 87070; 87077; 87186; 88108; 88312; 93005; 93306; 93880; 93970; 93971; 94002; 94003; 94640; 96374; 96375; 97110; 97162; 97166; 97168; 97530; 99285; A4565; A6261; C1725; C1769; C1785; C1892; C1898; J0330; J0461; J0610; J0690; J0692; J0696; J0885; J1200; J1265; J1644; J1815; J1956; J2060; J2250; J2270; J2370; J2543; J2704; J2785; J3010; J3370; J3490; J7030; J7040; J7050; J7060; J7608; J7620; P9016; P9041; Q9967; G0480

== ENCOUNTER 2019-04-07 18:45 | Inpatient (IN) | payer MEDICARE, MEDICAID ==
[~2019-04-07] VITALS: Ht 177.8 cm; Wt 99.3 kg
[~2019-04-07 18:45] MED LIST: LANS30CA55 GT; LEVO500T2 GT; MIDO5TAB PO; QUET25TA PO; SEVE800T8 PO
[2019-04-07 20:00] VITALS: BP 126/50
[2019-04-07] MEDS ORDERED: ACETAMINOPHEN 325MG TABLET PO PRN (21:15)
[2019-04-07] MEDS ORDERED: DEXTROSE 50% WATER 50ML SYRINGE IV PRN ×2 (21:15)
[2019-04-07] MEDS ORDERED: ONDANSETRON HCL 4MG/2ML INJ IV PRN (21:15)
[2019-04-07] MEDS ORDERED: CLONIDINE 0.1MG TABLET PO PRN (21:15)
[2019-04-07] MEDS ORDERED: IPRATROPIUM/ALBUTEROL 0.5-3(2.5)MG/3ML NEB NEB PRN (21:15)
[2019-04-07] MEDS ORDERED: MAGNESIUM/ALUMINUM HYDROXIDE/SIMETHICONE 30ML UDC PO PRN (21:15)
[2019-04-07] MEDS ORDERED: DOCUSATE SODIUM 100MG CAPSULE PO PRN (21:15)
[2019-04-07] MEDS ORDERED: TOPUD PO (22:22)
[2019-04-07] MEDS ORDERED: FOLI0.8T23 MT (22:22)
[2019-04-07] MEDS ORDERED: IPRA3AMP9 HHN (22:22)
[2019-04-07] MEDS ORDERED: POLY250017 MT (22:22)
[2019-04-07] MEDS ORDERED: AMIN30LI2 GT (22:22)
[2019-04-07] MEDS ORDERED: METO25TA6 MT (22:22)
[2019-04-07] MEDS ORDERED: SENN-170 MT (22:22)
[2019-04-07] MEDS ORDERED: ASCO-339 MT (22:22)
[2019-04-07] MEDS ORDERED: ACET-2708 MT (22:22)
[2019-04-07] MEDS ORDERED: HEPA500013 IJ (22:22)
[2019-04-07] MEDS ORDERED: DOCU-138 PO (22:22)
[2019-04-07] MEDS ORDERED: DARB60VI IJ (22:22)
[2019-04-08 04:00] VITALS: BP 131/71
[2019-04-08] MEDS: BLOOD SUGAR DIAGNOSTIC STRIP TEST SCH ×4 (06:20→21:00)
[2019-04-08] MEDS: INSULIN LISPRO 100 UNITS/ML SUBCUT SCH ×4 (07:50→21:00)
[2019-04-08 08:00] VITALS: BP 147/61
[2019-04-08] MEDS: PANTOPRAZOLE SODIUM 40 MG/VIAL IV SCH (09:00)
[2019-04-08 12:00] VITALS: BP 147/67
[2019-04-08] MEDS: DOCUSATE SODIUM 100MG CAPSULE PO SCH (13:07)
[2019-04-08] MEDS: MIDODRINE HCL 5MG TABLET PO SCH ×2 (13:07→17:00)
[2019-04-08] MEDS: SEVELAMER CARBONATE 800 MG TABLET PO SCH ×2 (13:07→18:09)
[2019-04-08] MEDS: FOLIC ACID/VITAMIN B COMP W-C TABLET PO SCH (13:07)
[2019-04-08 16:00] VITALS: BP 152/75
[2019-04-08 17:48] LABS: BASOPHILS % 0.7 % (0.0-2.0); EOSINOPHILS % 3.8 % (0.0-5.0); HEMATOCRIT. 28.2 % (42.0-52.0); HEMOGLOBIN. 9.6 g/dL (14.0-18.0); LYMPHOCYTES % 24.2 % (20.0-50.0); MEAN CORPUSCULAR HEMOGLOBIN 33.3 pg (28.0-32.0); MEAN CORPUSCULAR VOLUME 97.9 fL (80.0-94.0); MEAN PLATELET VOLUME 6.8 fl (7.4-10.4); MONOCYTES % 10.3 % (2.0-8.0); PLATELET 190 x1000/uL (130-400); RED BLOOD CELL COUNT 2.88 mill/uL (4.7-6.1); RED CELL DISTRIBUTION WIDTH 14.7 % (11.6-14.6)
[2019-04-08 17:51] LABS: CHLORIDE 111 mEq/L (98-107)
[2019-04-08 17:58] LABS: PHOSPHORUS 7.3 mg/dL (2.5-4.9)
[2019-04-08 17:59] LABS: LDL CHOLESTEROL 54 mg/dL (5-100)
[2019-04-08 18:01] LABS: HDL CHOLESTEROL 35 mg/dL (40-59)
[2019-04-08 20:00] VITALS: BP 142/55
[2019-04-08] MEDS: QUETIAPINE FUMARATE 25MG TABLET PO SCH (21:02)
[2019-04-08] MEDS: GUAIFENESIN 600MG ER TABLET PO SCH (21:02)
[2019-04-08] MEDS: METOPROLOL TARTRATE 25MG TABLET PO SCH (21:03)
[2019-04-09] VITALS: BP 117/48
[2019-04-09 04:00] VITALS: BP 150/71
[2019-04-09] MEDS: BLOOD SUGAR DIAGNOSTIC STRIP TEST SCH ×4 (06:55→20:40)
[2019-04-09] MEDS: INSULIN LISPRO 100 UNITS/ML SUBCUT SCH ×4 (07:50→20:40)
[2019-04-09 08:00] VITALS: BP 111/63
[2019-04-09] MEDS: GUAIFENESIN 600MG ER TABLET PO SCH ×2 (08:22→20:21)
[2019-04-09] MEDS: MIDODRINE HCL 5MG TABLET PO SCH ×3 (08:23→18:17)
[2019-04-09] MEDS: DOCUSATE SODIUM 100MG CAPSULE PO SCH (08:23)
[2019-04-09] MEDS: FOLIC ACID/VITAMIN B COMP W-C TABLET PO SCH (08:23)
[2019-04-09] MEDS: PANTOPRAZOLE SODIUM 40 MG/VIAL IV SCH ×3 (08:24→08:31)
[2019-04-09] MEDS: SEVELAMER CARBONATE 800 MG TABLET PO SCH ×3 (08:26→18:17)
[2019-04-09] MEDS: METOPROLOL TARTRATE 25MG TABLET PO SCH ×2 (09:00→20:21)
[2019-04-09 09:25] LABS: BASOPHILS % 0.8 % (0.0-2.0); EOSINOPHILS % 3.6 % (0.0-5.0); HEMATOCRIT. 29.8 % (42.0-52.0); HEMOGLOBIN. 9.9 g/dL (14.0-18.0); LYMPHOCYTES % 27.2 % (20.0-50.0); MEAN CORPUSCULAR HEMOGLOBIN 32.6 pg (28.0-32.0); MEAN CORPUSCULAR VOLUME 97.8 fL (80.0-94.0); MEAN PLATELET VOLUME 6.7 fl (7.4-10.4); MONOCYTES % 13.5 % (2.0-8.0); NEUTROPHILS % 54.9 % (40.0-76.0); PLATELET 182 x1000/uL (130-400); RED BLOOD CELL COUNT 3.05 mill/uL (4.7-6.1); RED CELL DISTRIBUTION WIDTH 14.9 % (11.6-14.6)
[2019-04-09 12:00] VITALS: BP 145/68
[2019-04-09 16:00] VITALS: BP 139/57
[2019-04-09 20:00] VITALS: BP 161/69
[2019-04-09] MEDS: QUETIAPINE FUMARATE 25MG TABLET PO SCH (20:21)
[2019-04-09] MEDS ORDERED: EPOETIN ALFA 4000UNITS/ML VIAL SUBCUT SCH (21:00)
[2019-04-10] VITALS: BP 141/60
[2019-04-10] MEDS: INSULIN LISPRO 100 UNITS/ML SUBCUT SCH ×4 (07:22→20:16)
[2019-04-10] MEDS: BLOOD SUGAR DIAGNOSTIC STRIP TEST SCH ×4 (07:22→20:15)
[2019-04-10 08:00] VITALS: BP 149/57
[2019-04-10] MEDS: DOCUSATE SODIUM 100MG CAPSULE PO SCH (08:14)
[2019-04-10] MEDS: SEVELAMER CARBONATE 800 MG TABLET PO SCH ×3 (08:14→17:13)
[2019-04-10] MEDS: GUAIFENESIN 600MG ER TABLET PO SCH ×2 (08:15→20:08)
[2019-04-10] MEDS: FOLIC ACID/VITAMIN B COMP W-C TABLET PO SCH (08:15)
[2019-04-10] MEDS: METOPROLOL TARTRATE 25MG TABLET PO SCH ×2 (08:18→20:08)
[2019-04-10] MEDS: MIDODRINE HCL 5MG TABLET PO SCH ×3 (08:19→17:13)
[2019-04-10] MEDS: FAMOTIDINE 20MG/2ML VIAL IV SCH (08:56)
[2019-04-10 16:00] VITALS: BP 168/63
[2019-04-10 20:00] VITALS: BP 189/72
[2019-04-10] MEDS: QUETIAPINE FUMARATE 25MG TABLET PO SCH (20:08)
[2019-04-11] VITALS: BP 149/68
[2019-04-11 04:00] VITALS: BP 160/65
[2019-04-11] MEDS: BLOOD SUGAR DIAGNOSTIC STRIP TEST SCH ×4 (06:21→20:28)
[2019-04-11] MEDS: INSULIN LISPRO 100 UNITS/ML SUBCUT SCH ×3 (06:21→17:50)
[2019-04-11] MEDS: SEVELAMER CARBONATE 800 MG TABLET PO SCH ×3 (07:50→17:50)
[2019-04-11 08:00] VITALS: BP 177/87
[2019-04-11] MEDS: METOPROLOL TARTRATE 25MG TABLET PO SCH ×2 (08:35→21:36)
[2019-04-11] MEDS: MIDODRINE HCL 5MG TABLET PO SCH (08:56)
[2019-04-11] MEDS: FOLIC ACID/VITAMIN B COMP W-C TABLET PO SCH (08:57)
[2019-04-11] MEDS: DOCUSATE SODIUM 100MG CAPSULE PO SCH (08:57)
[2019-04-11] MEDS: GUAIFENESIN 600MG ER TABLET PO SCH ×2 (08:57→21:36)
[2019-04-11] MEDS: FAMOTIDINE 20MG/2ML VIAL IV SCH (08:58)
[2019-04-11 12:00] VITALS: BP 151/62
[2019-04-11 16:00] VITALS: BP 152/84
[2019-04-11] MEDS ORDERED: HEPARIN SODIUM 1,000 UNIT/1ML VIAL IV NR (17:21)
[2019-04-11 20:09] VITALS: BP 128/54
[2019-04-11] MEDS: QUETIAPINE FUMARATE 25MG TABLET PO SCH (21:36)
== END 2019-04-11 23:45 | DRG 622 ==
LOC: 6EST 18:45
PROVIDERS: ADMIT Family Medicine Adult Medicine; ATTEND Family Medicine Adult Medicine
PROC: 0JBQ0ZZ Excision of Right Foot Subcutaneous Tissue and Fascia, Open Approach (ICD-10-PCS; principal; 2019-04-08)
PROC: 5A1D70Z Performance of Urinary Filtration, Intermittent, Less than 6 Hours Per Day (ICD-10-PCS; 2019-04-08)
PROC: 5A1D70Z Performance of Urinary Filtration, Intermittent, Less than 6 Hours Per Day (ICD-10-PCS; 2019-04-10)
DX: E87.70 Fluid overload, unspecified (principal); N18.6 End stage renal disease; I13.2 Hypertensive heart and chronic kidney disease with heart failure and with stage 5 chronic kidney disease, or end stage renal disease; I50.32 Chronic diastolic (congestive) heart failure; E66.01 Morbid (severe) obesity due to excess calories; L97.519 Non-pressure chronic ulcer of other part of right foot with unspecified severity; E11.621 Type 2 diabetes mellitus with foot ulcer; M54.5 Low back pain; D64.9 Anemia, unspecified; E11.42 Type 2 diabetes mellitus with diabetic polyneuropathy; I27.20 Pulmonary hypertension, unspecified; E11.51 Type 2 diabetes mellitus with diabetic peripheral angiopathy without gangrene; E11.22 Type 2 diabetes mellitus with diabetic chronic kidney disease; Z86.73 Personal history of transient ischemic attack (TIA), and cerebral infarction without residual deficits; Z99.2 Dependence on renal dialysis; Z86.74 Personal history of sudden cardiac arrest; Z87.891 Personal history of nicotine dependence; Z91.14 Patient's other noncompliance with medication regimen; Z95.810 Presence of automatic (implantable) cardiac defibrillator; Z99.3 Dependence on wheelchair; Z68.31 Body mass index [BMI] 31.0-31.9, adult; Z87.01 Personal history of pneumonia (recurrent)
CPT/HCPCS: 36415; 71045; 80048; 80061; 82140; 82962; 83036; 83735; 84100; 84443; 84484; 93970; 97162; 97166; C9113; J0885; J1644

== ENCOUNTER 2019-04-26 18:14 | Inpatient (IN) | payer MEDICARE, MEDICAID ==
[~2019-04-26] VITALS: Ht 177.8 cm; Wt 96.2 kg
[~2019-04-26 18:14] MED LIST changes: +ACET-2708 MT; +AMIN30LI2 GT; +ASCO-339 MT; +DARB60VI IJ; +DOCU-138 PO; +FOLI0.8T23 MT; +HEPA500013 IJ; +IPRA3AMP9 HHN; +METO25TA6 MT; +POLY250017 MT; +SENN-170 MT; +TOPUD PO
[2019-04-26 21:10] LABS: CHLORIDE 111 mEq/L (98-107)
[2019-04-26 21:12] LABS: BASOPHILS % 0.7 % (0.0-2.0); EOSINOPHILS % 4.3 % (0.0-5.0); HEMATOCRIT. 29.8 % (42.0-52.0); HEMOGLOBIN. 9.8 g/dL (14.0-18.0); LYMPHOCYTES % 19.5 % (20.0-50.0); MEAN CORPUSCULAR HEMOGLOBIN 32.7 pg (28.0-32.0); MEAN CORPUSCULAR VOLUME 99.3 fL (80.0-94.0); MEAN PLATELET VOLUME 6.5 fl (7.4-10.4); NEUTROPHILS % 64.5 % (40.0-76.0); PLATELET 247 x1000/uL (130-400); RED CELL DISTRIBUTION WIDTH 15.2 % (11.6-14.6)
[2019-04-26] MEDS ORDERED: SODIUM BICARBONATE 8.4% 1 MEQ/ML 50ML SYR IV ONE (23:00)
[2019-04-26] MEDS ORDERED: DEXTROSE 50% WATER 50ML SYRINGE IV ONE (23:00)
[2019-04-26] MEDS ORDERED: INSULIN REGULAR (HUMULIN R) 300UNITS/3ML IV ONE (23:00)
[2019-04-26] MEDS ORDERED: CALCIUM CHLORIDE 1GM/10ML SYR IV ONE (23:00)
[2019-04-26] MEDS ORDERED: HYDROCODONE/ACETAMINOPHEN 5/325MG TABLET PO ONE (23:45)
[2019-04-27 04:00] VITALS: BP 150/70
[2019-04-27] MEDS ORDERED: SENNOSIDES/DOCUSATE SOD 8.6/50MG TABLET PO PRN (06:45)
[2019-04-27] MEDS ORDERED: ACETAMINOPHEN 500MG TABLET PO PRN (06:45)
[2019-04-27] MEDS ORDERED: IPRATROPIUM/ALBUTEROL 0.5-3(2.5)MG/3ML NEB HHN PRN (06:45)
[2019-04-27] MEDS ORDERED: ACETAMINOPHEN 650MG/20.3ML UDC PO PRN (06:45)
[2019-04-27] MEDS ORDERED: DEXTROSE 50% WATER 50ML SYRINGE IV PRN (07:00)
[2019-04-27 08:00] VITALS: BP 148/70
[2019-04-27] MEDS: METOPROLOL TARTRATE 25MG TABLET PO SCH ×2 (10:00→22:01)
[2019-04-27] MEDS: ASCORBIC ACID 500 MG TABLET PO SCH (10:00)
[2019-04-27] MEDS ORDERED: LANSOPRAZOLE 30MG DR CAPSULE PO SCH (10:00)
[2019-04-27] MEDS: DOCUSATE SODIUM 100MG CAPSULE PO SCH (10:00)
[2019-04-27] MEDS: FOLIC ACID/VITAMIN B COMP W-C TABLET PO SCH (10:00)
[2019-04-27] MEDS: OMEPRAZOLE 20MG CAPSULE EXTENDED RELEASE PO SCH (10:00)
[2019-04-27] MEDS: SEVELAMER CARBONATE 800 MG TABLET PO SCH ×3 (10:00→18:30)
[2019-04-27] MEDS: POLYETHYLENE GLYCOL 3350 (17GM) 1 DOSE PACK PO SCH (10:00)
[2019-04-27 12:04] VITALS: BP 145/73
[2019-04-27] MEDS: BLOOD SUGAR DIAGNOSTIC STRIP TEST SCH ×3 (12:40→21:00)
[2019-04-27] MEDS: INSULIN LISPRO 100 UNITS/ML SUBCUT SCH ×3 (12:46→21:00)
[2019-04-27 16:00] VITALS: BP 135/38
[2019-04-27] MEDS ORDERED: QUETIAPINE FUMARATE 50MG TABLET PO SCH (21:00)
[2019-04-27] MEDS: EPOETIN ALFA 4000UNITS/ML VIAL SUBCUT SCH (22:14)
[2019-04-28] VITALS: BP 128/65
[2019-04-28 04:00] VITALS: BP 122/74
[2019-04-28] MEDS: BLOOD SUGAR DIAGNOSTIC STRIP TEST SCH ×4 (07:40→20:43)
[2019-04-28 08:00] VITALS: BP 102/88
[2019-04-28] MEDS: INSULIN LISPRO 100 UNITS/ML SUBCUT SCH ×4 (08:10→20:44)
[2019-04-28] MEDS: SEVELAMER CARBONATE 800 MG TABLET PO SCH ×3 (08:41→18:04)
[2019-04-28] MEDS: OMEPRAZOLE 20MG CAPSULE EXTENDED RELEASE PO SCH (08:41)
[2019-04-28] MEDS: POLYETHYLENE GLYCOL 3350 (17GM) 1 DOSE PACK PO SCH (08:41)
[2019-04-28] MEDS: ASCORBIC ACID 500 MG TABLET PO SCH (08:41)
[2019-04-28] MEDS: FOLIC ACID/VITAMIN B COMP W-C TABLET PO SCH (08:41)
[2019-04-28] MEDS: METOPROLOL TARTRATE 25MG TABLET PO SCH ×2 (08:41→21:01)
[2019-04-28] MEDS: DOCUSATE SODIUM 100MG CAPSULE PO SCH (08:41)
[2019-04-28 12:00] VITALS: BP 153/51
[2019-04-28 16:00] VITALS: BP 93/54
[2019-04-28] MEDS ORDERED: ACETAMINOPHEN 650MG/20.3ML UDC PO PRN (16:45)
[2019-04-28 17:56] LABS: HEPATITIS B SURFACE ANTIGEN NEGATIVE
[2019-04-28 18:25] LABS: HEPATITIS A AB IGM NEGATIVE (NEGATIVE)
[2019-04-28 20:00] VITALS: BP 142/66
[2019-04-28] MEDS: QUETIAPINE FUMARATE 25MG TABLET PO SCH (21:00)
[2019-04-29] VITALS: BP 128/64
[2019-04-29 04:00] VITALS: BP 138/69
[2019-04-29 08:00] VITALS: BP 141/63
[2019-04-29] MEDS: INSULIN LISPRO 100 UNITS/ML SUBCUT SCH ×4 (08:10→20:53)
[2019-04-29] MEDS: BLOOD SUGAR DIAGNOSTIC STRIP TEST SCH ×4 (08:17→20:53)
[2019-04-29] MEDS: DOCUSATE SODIUM 100MG CAPSULE PO SCH (08:18)
[2019-04-29] MEDS: POLYETHYLENE GLYCOL 3350 (17GM) 1 DOSE PACK PO SCH (08:19)
[2019-04-29] MEDS: FOLIC ACID/VITAMIN B COMP W-C TABLET PO SCH (09:08)
[2019-04-29] MEDS: OMEPRAZOLE 20MG CAPSULE EXTENDED RELEASE PO SCH (09:08)
[2019-04-29] MEDS: SEVELAMER CARBONATE 800 MG TABLET PO SCH ×3 (09:08→18:10)
[2019-04-29] MEDS: ASCORBIC ACID 500 MG TABLET PO SCH (09:08)
[2019-04-29] MEDS: METOPROLOL TARTRATE 25MG TABLET PO SCH ×2 (09:09→21:00)
[2019-04-29 16:00] VITALS: BP 161/81
[2019-04-29 16:12] LABS: BASOPHILS % 0.6 % (0.0-2.0); EOSINOPHILS % 3.6 % (0.0-5.0); HEMATOCRIT. 28.4 % (42.0-52.0); HEMOGLOBIN. 9.4 g/dL (14.0-18.0); LYMPHOCYTES % 21.9 % (20.0-50.0); MEAN CORPUSCULAR HEMOGLOBIN 32.9 pg (28.0-32.0); MEAN CORPUSCULAR VOLUME 98.9 fL (80.0-94.0); MEAN PLATELET VOLUME 6.8 fl (7.4-10.4); MONOCYTES % 13.9 % (2.0-8.0); PLATELET 216 x1000/uL (130-400); RED BLOOD CELL COUNT 2.87 mill/uL (4.7-6.1); RED CELL DISTRIBUTION WIDTH 14.7 % (11.6-14.6)
[2019-04-29] MEDS ORDERED: HEPARIN SODIUM 1,000 UNIT/1ML VIAL IV NR (17:15)
[2019-04-29 20:00] VITALS: BP 138/64
[2019-04-29] MEDS: QUETIAPINE FUMARATE 25MG TABLET PO SCH (21:00)
[2019-04-29] MEDS: EPOETIN ALFA 4000UNITS/ML VIAL SUBCUT SCH (21:00)
[2019-04-30] VITALS: BP 157/61
[2019-04-30] MEDS: BLOOD SUGAR DIAGNOSTIC STRIP TEST SCH ×4 (07:40→21:38)
[2019-04-30 08:00] VITALS: BP 112/56
[2019-04-30] MEDS: INSULIN LISPRO 100 UNITS/ML SUBCUT SCH ×4 (08:01→21:00)
[2019-04-30] MEDS: SEVELAMER CARBONATE 800 MG TABLET PO SCH ×3 (08:10→17:40)
[2019-04-30] MEDS: METOPROLOL TARTRATE 25MG TABLET PO SCH ×2 (08:35→21:38)
[2019-04-30] MEDS: DOCUSATE SODIUM 100MG CAPSULE PO SCH (08:35)
[2019-04-30] MEDS: FOLIC ACID/VITAMIN B COMP W-C TABLET PO SCH (08:36)
[2019-04-30] MEDS: FAMOTIDINE 20MG TABLET PO SCH (08:36)
[2019-04-30] MEDS: ASCORBIC ACID 500 MG TABLET PO SCH (08:36)
[2019-04-30] MEDS: POLYETHYLENE GLYCOL 3350 (17GM) 1 DOSE PACK PO SCH (08:36)
[2019-04-30 20:00] VITALS: BP 118/43
[2019-04-30] MEDS: QUETIAPINE FUMARATE 25MG TABLET PO SCH (21:38)
[2019-05-01 04:00] VITALS: BP 136/69
[2019-05-01] MEDS: BLOOD SUGAR DIAGNOSTIC STRIP TEST SCH ×4 (05:14→20:31)
[2019-05-01] MEDS: INSULIN LISPRO 100 UNITS/ML SUBCUT SCH ×4 (07:58→20:31)
[2019-05-01 08:00] VITALS: BP 179/61
[2019-05-01] MEDS: DOCUSATE SODIUM 100MG CAPSULE PO SCH (08:42)
[2019-05-01] MEDS: POLYETHYLENE GLYCOL 3350 (17GM) 1 DOSE PACK PO SCH (08:43)
[2019-05-01] MEDS: FOLIC ACID/VITAMIN B COMP W-C TABLET PO SCH (08:59)
[2019-05-01] MEDS: METOPROLOL TARTRATE 25MG TABLET PO SCH ×2 (09:00→20:31)
[2019-05-01] MEDS: ASCORBIC ACID 500 MG TABLET PO SCH (09:00)
[2019-05-01] MEDS: FAMOTIDINE 20MG TABLET PO SCH (09:00)
[2019-05-01] MEDS: SEVELAMER CARBONATE 800 MG TABLET PO SCH ×3 (09:00→17:40)
[2019-05-01 12:00] VITALS: BP 158/72
[2019-05-01 16:00] VITALS: BP 167/81
[2019-05-01 20:00] VITALS: BP 159/48
[2019-05-01] MEDS: QUETIAPINE FUMARATE 25MG TABLET PO SCH (20:31)
[2019-05-02 04:00] VITALS: BP 142/74
[2019-05-02] MEDS: BLOOD SUGAR DIAGNOSTIC STRIP TEST SCH ×3 (05:54→17:40)
[2019-05-02] MEDS: INSULIN LISPRO 100 UNITS/ML SUBCUT SCH ×3 (08:10→18:10)
[2019-05-02] MEDS: SEVELAMER CARBONATE 800 MG TABLET PO SCH ×3 (08:10→18:10)
[2019-05-02] MEDS: DOCUSATE SODIUM 100MG CAPSULE PO SCH (09:30)
[2019-05-02] MEDS: ASCORBIC ACID 500 MG TABLET PO SCH (09:30)
[2019-05-02] MEDS: POLYETHYLENE GLYCOL 3350 (17GM) 1 DOSE PACK PO SCH (09:30)
[2019-05-02] MEDS: METOPROLOL TARTRATE 25MG TABLET PO SCH (09:31)
[2019-05-02] MEDS: FAMOTIDINE 20MG TABLET PO SCH (09:31)
[2019-05-02] MEDS: FOLIC ACID/VITAMIN B COMP W-C TABLET PO SCH (09:31)
[2019-05-02 16:00] VITALS: BP 176/73
== END 2019-05-02 20:18 | disposition left against medical advice (07) | DRG 40 ==
LOC: ER 19:05 → EDBEDREQTM 23:35 → EDBEDREQ 23:35 → ENRESERV 04-27 03:08 → 7WST 04-27 04:00
PROVIDERS: ADMIT Internal Medicine; ATTEND Internal Medicine
PROC: 0JBQ0ZZ Excision of Right Foot Subcutaneous Tissue and Fascia, Open Approach (ICD-10-PCS; principal; 2019-04-27)
PROC: 5A1D70Z Performance of Urinary Filtration, Intermittent, Less than 6 Hours Per Day (ICD-10-PCS; 2019-04-27)
PROC: 5A1D70Z Performance of Urinary Filtration, Intermittent, Less than 6 Hours Per Day (ICD-10-PCS; 2019-04-28)
PROC: 5A1D70Z Performance of Urinary Filtration, Intermittent, Less than 6 Hours Per Day (ICD-10-PCS; 2019-04-29)
DX: G93.41 Metabolic encephalopathy (principal); N18.6 End stage renal disease; I13.2 Hypertensive heart and chronic kidney disease with heart failure and with stage 5 chronic kidney disease, or end stage renal disease; Z99.2 Dependence on renal dialysis; E11.22 Type 2 diabetes mellitus with diabetic chronic kidney disease; D63.8 Anemia in other chronic diseases classified elsewhere; I27.20 Pulmonary hypertension, unspecified; I50.9 Heart failure, unspecified; G93.49 Other encephalopathy; L97.519 Non-pressure chronic ulcer of other part of right foot with unspecified severity; R74.0 Nonspecific elevation of levels of transaminase and lactic acid dehydrogenase [LDH]; Z53.29 Procedure and treatment not carried out because of patient's decision for other reasons; M62.81 Muscle weakness (generalized); E87.5 Hyperkalemia; E11.621 Type 2 diabetes mellitus with foot ulcer; E66.01 Morbid (severe) obesity due to excess calories; E87.8 Other disorders of electrolyte and fluid balance, not elsewhere classified; E11.42 Type 2 diabetes mellitus with diabetic polyneuropathy; Z86.73 Personal history of transient ischemic attack (TIA), and cerebral infarction without residual deficits; Z86.74 Personal history of sudden cardiac arrest; Z95.810 Presence of automatic (implantable) cardiac defibrillator; Z99.3 Dependence on wheelchair; Z87.891 Personal history of nicotine dependence; Z87.01 Personal history of pneumonia (recurrent); Z71.3 Dietary counseling and surveillance
CPT/HCPCS: 36415; 71045; 80048; 82140; 82962; 83605; 83880; 84443; 84484; 86705; 86709; 86803; 87340; 93005; 99291; A6261; J0885; J1644; J1815; J3490

== ENCOUNTER 2019-05-12 16:00 | Emergency (ER) | payer MEDICARE, MEDICAID ==
[~2019-05-12] VITALS: Ht 182.9 cm; Wt 102.0 kg
[2019-05-12] MEDS ORDERED: SODIUM CHLORIDE 0.9% 1,000 ML IV ONE (16:41)
[2019-05-12] MEDS ORDERED: ONDANSETRON HCL 4MG/2ML INJ IV STA ×2 (16:41→21:39)
[2019-05-12] MEDS ORDERED: MORPHINE SULFATE 4 MG/ML CPJ (NOT FOR IM USE) IV STA ×2 (16:41→21:39)
[2019-05-12 17:12] LABS: CHLORIDE 111 mEq/L (98-107)
[2019-05-12 17:15] LABS: INR 1.1; PARTIAL THROMBOPLASTIN TIME 23.8 sec (23.4-31.0); PROTHROMBIN TIME 11.5 sec (9.6-11.0)
[2019-05-12 17:22] LABS: BASOPHILS % 0.5 % (0.0-2.0); EOSINOPHILS % 1.4 % (0.0-5.0); HEMATOCRIT. 27.5 % (42.0-52.0); HEMOGLOBIN. 9.2 g/dL (14.0-18.0); LYMPHOCYTES % 7.3 % (20.0-50.0); MEAN CORPUSCULAR HEMOGLOBIN 32.4 pg (28.0-32.0); MEAN CORPUSCULAR VOLUME 97.1 fL (80.0-94.0); MEAN PLATELET VOLUME 7.1 fl (7.4-10.4); MONOCYTES % 6.5 % (2.0-8.0); NEUTROPHILS % 84.3 % (40.0-76.0); PLATELET 262 x1000/uL (130-400); RED BLOOD CELL COUNT 2.84 mill/uL (4.7-6.1); RED CELL DISTRIBUTION WIDTH 14.3 % (11.6-14.6)
[2019-05-12] MEDS ORDERED: DEXTROSE 50% WATER 50ML SYRINGE IV ONE ×2 (19:30→23:30)
[2019-05-12] MEDS ORDERED: MORPHINE SULFATE 4 MG/ML CPJ (NOT FOR IM USE) IV ONE (19:30)
[2019-05-12] MEDS ORDERED: INSULIN REGULAR (HUMULIN R) 300UNITS/3ML IV ONE ×2 (19:30→23:30)
[2019-05-12] MEDS ORDERED: ALBUTEROL (0.083%) 2.5MG/3ML NEB HHN ONE ×2 (19:30→23:30)
[2019-05-12] MEDS ORDERED: SODIUM BICARBONATE 8.4% 1 MEQ/ML 50ML SYR IV ONE ×2 (19:30→23:30)
[2019-05-12] MEDS ORDERED: SODIUM POLYSTYRENE SULFONATE 15 G/60 ML BOT PO ONE (19:30)
[2019-05-12] MEDS ORDERED: IOHEXOL-300 100 ML BOTTLE ONE (22:09)
[2019-05-12] MEDS ORDERED: CALCIUM CHLORIDE 1GM/10ML SYR IV ONE (23:30)
[2019-05-13 00:18] VITALS: BP 135/57
== END 2019-05-13 00:53 | disposition short-term general hospital (02) ==
LOC: ER 16:00
DX: S12.9XXA Fracture of neck, unspecified, initial encounter (principal); V49.49XA Driver injured in collision with other motor vehicles in traffic accident, initial encounter; Y93.89 Activity, other specified; Y92.89 Other specified places as the place of occurrence of the external cause; Y99.8 Other external cause status; E87.5 Hyperkalemia; K94.23 Gastrostomy malfunction; E87.70 Fluid overload, unspecified; E11.9 Type 2 diabetes mellitus without complications; N18.6 End stage renal disease; Z99.2 Dependence on renal dialysis; Z79.899 Other long term (current) drug therapy
CPT/HCPCS: 36415; 70450; 71045; 71260; 72070; 72100; 72125; 73110; 80048; 80053; 82962; 83880; 84484; 85025; 85610; 85730; 86850; 86900; 86901; 93005; 94644; 96374; 96375; 96376; 99291; J1815; J2270; J2405; J3490; J7030; J7611; Q9967

== ENCOUNTER 2020-07-21 10:08 | Inpatient (IN) | payer MEDICARE, MEDICAID ==
[~2020-07-21] VITALS: Ht 177.8 cm; Wt 97.1 kg
[~2020-07-21 10:08] MED LIST changes: -MIDO5TAB PO; +MIDO5TAB4 PO; -SENN-170 MT; +SENN-257 MT
[2020-07-21 11:01] LABS: BASOPHILS % 0.7 % (0.0-2.0); EOSINOPHILS % 1.8 % (0.0-5.0); HEMATOCRIT. 31.1 % (42.0-52.0); HEMOGLOBIN. 10.3 g/dL (14.0-18.0); MEAN CORPUSCULAR HEMOGLOBIN 31.8 pg (28.0-32.0); MEAN CORPUSCULAR VOLUME 95.7 fL (80.0-94.0); MEAN PLATELET VOLUME 7.5 fl (7.4-10.4); MONOCYTES % 7.1 % (2.0-8.0); NEUTROPHILS % 75.4 % (40.0-76.0); PLATELET 203 x1000/uL (130-400); RED BLOOD CELL COUNT 3.25 mill/uL (4.7-6.1); RED CELL DISTRIBUTION WIDTH 14.4 % (11.6-14.6)
[2020-07-21 11:07] LABS: CHLORIDE 107 mEq/L (98-107)
[2020-07-21 11:12] LABS: ETHANOL BLOOD < 10 mg/dL
[2020-07-21] MEDS ORDERED: MORPHINE SULFATE 2 MG/ML CPJ (NOT FOR IM USE) IV PRN (13:30)
[2020-07-21] MEDS ORDERED: ONDANSETRON HCL 4MG/2ML INJ IV PRN (13:30)
[2020-07-21] MEDS ORDERED: ACETAMINOPHEN 325MG TABLET PO PRN (13:30)
[2020-07-21 14:52] VITALS: BP 159/70
[2020-07-21 15:54] VITALS: BP 159/70
[2020-07-21] MEDS: METOPROLOL TARTRATE 25MG TABLET PO SCH ×2 (19:15→20:27)
[2020-07-21] MEDS ORDERED: ACETAMINOPHEN 325MG TABLET PO SCH (19:15)
[2020-07-21] MEDS: DOCUSATE SODIUM 100MG CAPSULE PO SCH ×2 (19:15→20:26)
[2020-07-21 19:25] LABS: TOTAL IRON BINDING CAPACITY 147 ug/dL (250-450)
[2020-07-21] MEDS: QUETIAPINE FUMARATE 25MG TABLET PO SCH ×3 (20:26→20:32)
[2020-07-21] MEDS ORDERED: QUETIAPINE FUMARATE 25MG TABLET PO SCH (21:00)
[2020-07-21 21:45] VITALS: BP 123/36
[2020-07-22] VITALS (7 sets, daily range): BP systolic 114–137; BP diastolic 29–64
[2020-07-22] MEDS: LANSOPRAZOLE 30MG DR CAPSULE GT SCH (06:03)
[2020-07-22] MEDS: SEVELAMER CARBONATE 800 MG TABLET PO SCH ×3 (07:40→18:33)
[2020-07-22 08:53] LABS: BASOPHILS % 0.5 % (0.0-2.0); EOSINOPHILS % 4.4 % (0.0-5.0); HEMATOCRIT. 24.8 % (42.0-52.0); HEMOGLOBIN. 8.2 g/dL (14.0-18.0); LYMPHOCYTES % 21.1 % (20.0-50.0); MEAN CORPUSCULAR HEMOGLOBIN 31.6 pg (28.0-32.0); MEAN CORPUSCULAR VOLUME 95.6 fL (80.0-94.0); MEAN PLATELET VOLUME 7.1 fl (7.4-10.4); MONOCYTES % 9.1 % (2.0-8.0); NEUTROPHILS % 64.9 % (40.0-76.0); PLATELET 163 x1000/uL (130-400); RED BLOOD CELL COUNT 2.59 mill/uL (4.7-6.1); RED CELL DISTRIBUTION WIDTH 14.8 % (11.6-14.6)
[2020-07-22] MEDS: METOPROLOL TARTRATE 25MG TABLET PO SCH ×2 (09:00→18:34)
[2020-07-22] MEDS: DOCUSATE SODIUM 100MG CAPSULE PO SCH (09:18)
[2020-07-22] MEDS: FOLIC ACID/VITAMIN B COMP W-C TABLET PO SCH (09:18)
[2020-07-22 09:30] LABS: PHOSPHORUS 8.8 mg/dL (2.5-4.9)
[2020-07-22 09:47] LABS: VITAMIN B12 SERUM 409 pg/mL (211-911)
[2020-07-22 14:48] LABS: FERRITIN 1523 ng/mL (22-322)
[2020-07-22 15:00] LABS: HEPATITIS B SURFACE ANTIGEN NEGATIVE
[2020-07-22 15:29] LABS: HEPATITIS A AB IGM NEGATIVE (NEGATIVE)
[2020-07-22] MEDS ORDERED: EPOETIN ALFA 10000UNITS/ML VIAL SUBCUT NR (21:00)
[2020-07-22] MEDS ORDERED: EPOETIN ALFA-EPBX 10,000 UNIT/ML VIAL SUBCUT NR (21:00)
[2020-07-22] MEDS: QUETIAPINE FUMARATE 25MG TABLET PO SCH (21:46)
[2020-07-23] VITALS: BP 111/58
[2020-07-23 04:00] VITALS: BP 138/54
[2020-07-23] MEDS: LANSOPRAZOLE 30MG DR CAPSULE GT SCH (06:09)
[2020-07-23 08:00] VITALS: BP 136/86
[2020-07-23] MEDS: DOCUSATE SODIUM 100MG CAPSULE PO SCH ×2 (09:00→09:10)
[2020-07-23] MEDS: METOPROLOL TARTRATE 25MG TABLET PO SCH (09:10)
[2020-07-23] MEDS: SEVELAMER CARBONATE 800 MG TABLET PO SCH ×2 (09:10→14:16)
[2020-07-23] MEDS: FOLIC ACID/VITAMIN B COMP W-C TABLET PO SCH (09:10)
[2020-07-23 12:00] VITALS: BP 126/62
== END 2020-07-23 16:24 | disposition home or self-care (01) | DRG 391 ==
LOC: ER 10:26 → 8WST 11:41 → ENRESERV 13:58 → 8WST 16:30
PROVIDERS: ADMIT Internal Medicine; ATTEND Internal Medicine
PROC: 5A1D70Z Performance of Urinary Filtration, Intermittent, Less than 6 Hours Per Day (ICD-10-PCS; principal; 2020-07-21)
PROC: 5A1D70Z Performance of Urinary Filtration, Intermittent, Less than 6 Hours Per Day (ICD-10-PCS; 2020-07-22)
DX: K52.9 Noninfective gastroenteritis and colitis, unspecified (principal); N18.6 End stage renal disease; I13.2 Hypertensive heart and chronic kidney disease with heart failure and with stage 5 chronic kidney disease, or end stage renal disease; R10.9 Unspecified abdominal pain; D63.8 Anemia in other chronic diseases classified elsewhere; E11.22 Type 2 diabetes mellitus with diabetic chronic kidney disease; E11.42 Type 2 diabetes mellitus with diabetic polyneuropathy; E66.9 Obesity, unspecified; I27.20 Pulmonary hypertension, unspecified; F03.90 Unspecified dementia, unspecified severity, without behavioral disturbance, psychotic disturbance, mood disturbance, and anxiety; I50.9 Heart failure, unspecified; Z59.0 Homelessness; Z86.73 Personal history of transient ischemic attack (TIA), and cerebral infarction without residual deficits; Z86.74 Personal history of sudden cardiac arrest; Z99.2 Dependence on renal dialysis; Z79.2 Long term (current) use of antibiotics; Z79.899 Other long term (current) drug therapy; Z68.30 Body mass index [BMI] 30.0-30.9, adult; Z95.810 Presence of automatic (implantable) cardiac defibrillator
CPT/HCPCS: 36415; 71045; 80048; 80053; 80320; 82607; 82728; 82746; 83540; 83550; 83605; 83880; 84100; 84484; 85025; 86705; 86709; 86803; 87340; 93005; 97162; 99285; A6261; J0885; G0480